=== PATIENT | male | born 1970 | race Caucasian/White ===

== ENCOUNTER 2022-07-26 16:31 | Inpatient (IN) | payer SELFPAY ==
[2022-07-26 16:46] VITALS: BP 155/82; PULSE 92; RESP 18; TEMP 36.7; O2SAT 97; BMI 23.7
[2022-07-26 18:47] VITALS: BP 138/87; PULSE 83; RESP 18; TEMP 36.6; O2SAT 98
--- NOTE | 2022-07-26 19:10 | ED_ITS ---
HPI - Abdominal Pain General Time Seen by Provider: 19:10 Date Seen: 07/26/22 Chief Complaint: Abdominal Pain Stated Complaint: Pain, bloating on L side Time Seen by Provider: 07/26/22 18:53 Source: patient and RN notes reviewed Mode of arrival: ambulatory Limitations: no limitations History of Present Illness HPI narrative: Patient is a 52-year-old male ambulatory into the ED of his own accord for left- sided abdominal pain. He states on Tuesday he started having symptoms, really could not even get out of bed on Tuesday or Tuesday. No nausea or vomiting but has had diminished appetite. Has not noted fevers. No diarrhea or constipation but states he feels like it is painful when he is going to have to defecate. Denies any urinary symptoms. He has not had a colonoscopy yet. He tried to go to work today and the pain was increasing. He looked at himself in the mirror and thought the left side of his abdomen looked more bloated or was sticking out more. He is a nonsmoker, rarely drinks alcohol/just socially. Has had bilateral inguinal hernia repairs but no other abdominal surgery. He is not aware of any family history of anything significant as far as GI issues, no colon cancer. MD elicited complaint: abdominal pain Related Data Home Medications Medication Instructions Recorded Confirmed No Known Home Medications 07/26/22 07/26/22 Allergies Allergy/AdvReac Type Severity Reaction Status Date / Time No Known Drug Allergies Allergy Verified 07/26/22 16:52 Review of Systems Status of ROS Reports: 6 or more systems reviewed and unremarkable except as noted in History and below PFSH PFS Social History Smoking Status: Never smoker How often do you have a drink containing alcohol: monthly or less How many standard drinks containing alcohol do you have on a typical day: 1 or 2 How often do you have six or more drinks on one occasion: Never AUDIT-C Alcohol total score: 1 Non-prescribed substance use: denies use Exam Const: Vital Signs, click to edit/add: Vital Signs - 24 hr 07/26/22 16:46 07/26/22 18:47 Temperature 98.0 F 97.8 F Pulse Rate [Pulse Oximeter] 92 83 Respiratory Rate 18 18 Blood Pressure [Ri ght Upper Arm] 155/82 H 138/87 Pulse Oximetry 97 98 Oxygen Delivery Me thod Room Air Documenting provider has reviewed patient's vital signs: yes Common normals: no apparent distress, average body habitus, oriented x3, no limitations and alert General appearance: cooperative and comfortable Other: Standing up in the room when I go in but is able to sit down and lie back on the bed without any difficulty. HENMT: Common normals: normocephalic, head/scalp atraumatic, hearing grossly normal bilaterally, external nose normal and moist oral mucous membranes Head and scalp: normocephalic and atraumatic Nose: external nose normal Eye: Common normals: PERRL, EOMs intact bilaterally, conjunctivae normal and no scleral icterus Conjunctiva: conjunctiva(e) normal Pupil: PERRL Neck & C-Spine: Common normals: full ROM, no lymphadenopathy, supple and no meningeal signs Resp: Common normals: normal respiratory effort, no retractions, no use of accessory muscles and clear to auscultation bilaterally Auscultation: clear to auscultation bilaterally Cardio: Common normals: regular rate, regular rhythm, S1 normal heart sound, S2 normal heart sound, no gallops, no clicks, no murmurs and no rub Rate: regular rate Rhythm: regular rhythm Heart sounds: S1 normal and S2 normal GI: Common normals: Normal to inspection, nondistended, normoactive bowel sounds present, soft to palpation, no hepatosplenomegaly and no masses Palpa tion: soft and no hepatosplenomegaly Other: Definite left sided mid to lower abdominal tenderness but no true rebound or guarding. Do not feel any underlying mass. There is no inguinal bulging or masses, inguinal region is nontender. Extremity: Common normals: normal to inspection and full ROM Neuro: Common normals: oriented x3 and moves all extremities Sensorium/orientation: alert Meningeal signs: no meningeal signs Gait (neuro): normal gait Course Course Hospital Course: We will place an IV, this patient needs a CT of his abdomen and pelvis with IV contrast to delineate underlying intra-abdominal pathology. This could be diverticulitis, does not sound like it is in the urinary system but such things like kidney stones could be possible. We will start with some IV Toradol for pain management for him. Will get a full complement of labs. Reevaluation(s) Reevaluation #1: Have reviewed with patient with his 2 children whom he requested in his findings of a small-bowel obstruction with a small what seems to be walled off abscess. I have spoken with them that I have reviewed this with the surgeon. We are going to do bowel rest, IV fluids, IV antibiotics. Nursing staff was bringing i n his IV Zosyn when I was talking to them. Did confirm with him that he is still passing gas, believes he had a stool around 1:00 p.m. today. Toradol did help his pain. Time: 21:53 Consultations Consultation #1: Spoke with surgeon on-call Dr. Mireles, she will look at CT and contact me back. We will initiate antibiotics. 9:[address] Mireles did call back, she has reviewed the CT. She would like patient admitted, contact the hospitalist. She does not see the need for immediate surgery. Plan will be for hospitalization with IV antibiotics, bowel rest and IV fluid. Surgeon is okay with clear liquids at this time. Time: 21:25 Vital Signs Vital signs: Initial Vital Signs Temperature 98.0 F 07/26/22 16:46 Temperature Source Temporal Artery Scan 07/26/22 16:46 Pulse Rate 92 07/26/22 16:46 Respiratory Rate 18 07/26/22 16:46 Blood Pressure 155/82 H 07/26/22 16:46 Blood Pressure Mean 106 H 07/26/22 16:46 Blood Pressure Position Sitting 07/26/22 16:46 Pulse Oximetry 97 07/26/22 16:46 Oxygen Delivery Method Room Air 07/26/22 16:46 Vital Signs Temperature 98.0 F 07/26/22 16:46 Pulse Rate 92 07/26/22 16:46 Respiratory Rate 18 07/26/22 16:46 Blood Pressure 155/82 H 07/26/22 16:46 Pulse Oximetry 97 07/26/22 16:46 Oxygen Delivery Method Room Air 07/26/22 16:46 Temperature 97.8 F 07/26/22 18:47 Pulse Rate 83 07/26/22 18:47 Respiratory Rate 18 07/26/22 18:47 Blood Pressure 138/87 07/26/22 18:47 Pulse Oximetry 98 07/26/22 18:47 Oxygen Delivery Method Room Air 07/26/22 16:46 MDM - Abdominal Pain Lab Data Attestation: I reviewed the patient's lab results. Labs: Lab Results 07/26/22 07/26/22 Range/Units 19:28 20:30 WBC 9.79 (4.50-11.00) K/uL RBC 4.32 (4.30-5.90) m/uL Hgb 13.8 (13.5-17.5) gm/dL Hct 40.5 (37.0-53.0) % MCV 94 (80-100) fL MCH 32 (26-34) pg MCHC 34 (32-36) gm/dL RDW Coeff of [place] 13.7 (11.5-15.5) % Plt Count 352 (140-440) K/uL Neut % (Auto) 69.9 (42.0-72.0) % Lymph % (Auto) 19.2 L (20-44) % [place] % (Auto) 8.5 (0.0-11.0) % Eos % (Auto) 1.3 (0.0-7.0) % Baso % (Auto) 0.3 (0.0-3.0) % Neut # (Auto) 6.84 (1.7-7.0) K/uL Lymph # (Auto) 1.90 (0.90-2.90) K/uL [place] # (Auto) 0.80 (0.00-0.90) K/UL Eos # (Auto) 0.13 (0.00-0.50) K/uL Baso # (Auto) 0.03 (0.00-0.30) K/uL Sodium 139 (135-149) mmol/L Potassium 3.8 (3.6-5.1) mmol/L Chloride 103 (96-114) mmol/L Carbon Dioxide 26 (20-32) mmol/L BUN 17 (7-30) mg/dL Creatinine 0.9 (0.5-1.5) mg/dL Estimated Creat Clear 110.97 Estimated GFR 104 ml/min Glucose 114 (60-115) mg/dL Lactate 0.6 (0.5-1.9) mmol/L Calcium 9.2 (8.4-10.6) mg/dL Total Bilirubin 0.4 (0.1-1.5) mg/dL AST 26 (12-35) U/L ALT 24 (4-50) U/L Alkaline Phosphatase 90 (40-150) U/L C-Reactive Protein 17.8 H (0.5-1.0) mg/dL Total Protein 7.8 (6.0-8.3) g/dL Albumin 4.2 (3.3-5.0) g/dL Urine Color Yasmin A (Yellow) Urine Appearance Cloudy A (Clear) Urine pH 5.5 (5.0-8.5) Ur Specific [place] >= 1.030 (1.000-1.030) Urine Protein 2+ A (Negative) Urine Glucose (UA) Negative (Negative) Urine Ketones 1+ A (Negative) Urine Blood Trace-intact A (Negative) Urine Nitrite Negative (Negative) Urine Bilirubin Negative (Negative) Urine Urobilinogen 0.2 (0.2-1.0) Ur Leukocyte Esterase Negative (Negative) Urine RBC 0-2 (0-2) Urine WBC 0-2 (0-5) Ur Squamous Epith Cells Few (None-Few) Urine Bacteria None (None) Imaging Data CT scan - abdomen: Attestation: I have reviewed the pertinent imaging results. Radiologist's impression: Patient: KALI MCLAUGHLIN Facility:?[facility] Patient ID:?[id number] Site Patient ID:?[id number]. Site :?[id number] Study:?CT Abdomen/Pelvis w/ 89cc [id number] 8:48:03 PM Ordering Physician:Lee Hernandez Final Report: INDICATION: Left-sided abdominal pain for 3 days TECHNIQUE: CT abdomen and pelvis acquired with 89 cc Isovue 370 IV contrast. COMPARISON: None FINDINGS: Lower chest: 5 mm pulmonary nodule in the lateral aspect of the left lower lobe on image 12 series 2. Calcified granuloma in the right lower lobe Liver: Unremarkable. Spleen: Unremarkable. Pancreas: Unremarkable. Gallbladder and bile ducts: Unremarkable. Adrenal glands: Unremarkable. Kidneys: Unremarkable. GI tract: Multiple loops of dilated small bowel measure to 3.6 cm in diameter. There is a small bowel feces sign within bowel loops in the left abdomen. This finding is immediately proximal to the transition point in the left mid abdomen where there is focal wall thickening of the small bowel with surrounding fat stranding and a 2.0 x 2.0 x 2.6 cm air and fluid collection, best seen on image 95 series 2 and image 75 series 5. There is a small amount of free fluid. There is colonic diverticulosis without evidence for diverticulitis. There is mild, generalized fat stranding throughout the mesenteric fat. Vascular structures: Unremarkable. Lymph nodes: Unremarkable. Miscellaneous: Status post bilateral inguinal herniorrhaphy. Pelvic Organs: Unremarkable. Bones: Unremarkable for age. IMPRESSION: Small-bowel obstruction. The transition point is in the left mid abdomen at the site of an air and fluid collection measuring 2 cm. This fluid collection could be a small abscess or a contained perforation of the small bowel. Recommend surgical consultation. 5 mm pulmonary nodule in the left lower lobe. Recommend follow-up per Fleischner society guidelines. Colonic diverticulosis without evidence for diverticulitis. Please note that all CT scans at this facility use dose modulation, iterative reconstruction, and/or weight-based dosing when appropriate to reduce radiation dose to as low as reasonably achievable. Dictated by Jil Bergman MD @ 07/26/2022 9:01:21 PM (Electronic Signature) Discharge Plan Discharge Clinical Impression: Partial small bowel obstruction Patient Disposition: Admitted As Inpatient Condition: Unchanged Prescriptions: No Action No Known Home Medications Follow Up/Referrals: Willis Martínez MD [Primary Care Provider] -
--- NOTE | 2022-07-26 19:19 | CRLHL7_ITS ---
For Patients: As a result of the Century Cures Act, medical imaging exams and procedure reports are released immediately into your electronic medical record. You may view this report before your referring provider. If you have questions, please contact your health care provider. INDICATION: Left-sided abdominal pain for 3 days TECHNIQUE: CT abdomen and pelvis acquired with 89 cc Isovue 370 IV contrast. COMPARISON: None FINDINGS: Lower chest: 5 mm pulmonary nodule in the lateral aspect of the left lower lobe on image 12 series 2. Calcified granuloma in the right lower lobe Liver: Unremarkable. Spleen: Unremarkable. Pancreas: Unremarkable. Gallbladder and bile ducts: Unremarkable. Adrenal glands: Unremarkable. Kidneys: Unremarkable. GI tract: Multiple loops of dilated small bowel measure to 3.6 cm in diameter. There is a small bowel feces sign within bowel loops in the left abdomen. This finding is immediately proximal to the transition point in the left mid abdomen where there is focal wall thickening of the small bowel with surrounding fat stranding and a 2.0 x 2.0 x 2.6 cm air and fluid collection, best seen on image 95 series 2 and image 75 series 5. There is a small amount of free fluid. There is colonic diverticulosis without evidence for diverticulitis. There is mild, generalized fat stranding throughout the mesenteric fat. Vascular structures: Unremarkable. Lymph nodes: Unremarkable. Miscellaneous: Status post bilateral inguinal herniorrhaphy. Pelvic Organs: Unremarkable. Bones: Unremarkable for age. IMPRESSION: Small-bowel obstruction. The transition point is in the left mid abdomen at the site of an air and fluid collection measuring 2 cm. This fluid collection could be a small abscess or a contained perforation of the small bowel. Recommend surgical consultation. 5 mm pulmonary nodule in the left lower lobe. Recommend follow-up per Fleischner society guidelines. Colonic diverticulosis without evidence for diverticulitis. Please note that all CT scans at this facility use dose modulation, iterative reconstruction, and/or weight-based dosing when appropriate to reduce radiation dose to as low as reasonably achievable. Dictated by Jil Bergman MD @ 07/26/2022 9:01:21 PM (Electronically Signed)
[2022-07-26 19:36] LABS: Lactate* 0.6 mmol/L (0.5-1.9)
[2022-07-26 19:42] LABS: Basophils Absolute Auto 0.03 K/uL (0.00-0.30); Basophils Percent Auto 0.3 % (0.0-3.0); Eosinophils Absolute Auto 0.13 K/uL (0.00-0.50); Eosinophils Percent Auto 1.3 % (0.0-7.0); Hematocrit 40.5 % (37.0-53.0); Hemoglobin* 13.8 gm/dL (13.5-17.5); Immature Granulocytes Abs Auto 0.08 K/uL (0.00-0.30); Immature Granulocytes Pct Auto 0.8 %; Lymphocytes Percent Auto 19.2 % (20-44); Mean Corpuscular HGB Conc 34 gm/dL (32-36); Mean Corpuscular Hemoglobin 32 pg (26-34); Mean Corpuscular Volume 94 fL (80-100); Monocytes Percent Auto 8.5 % (0.0-11.0); Neutrophils Absolute Auto 6.84 K/uL (1.7-7.0); Neutrophils Percent Auto 69.9 % (42.0-72.0); Platelet Count* 352 K/uL (140-440); RDW Coefficient of Variation % 13.7 % (11.5-15.5); Red Blood Count 4.32 m/uL (4.30-5.90); White Blood Count* 9.79 K/uL (4.50-11.00)
[2022-07-26] MEDS: KETOROLAC 15 MG/ML inj IVP (19:44)
[2022-07-26 19:45] LABS: Slide Review Reflex No
[2022-07-26] MEDS: 0.9 % SODIUM CHLORIDE 500 ML 500 ML IV (19:45)
[2022-07-26 19:50] VITALS: BP 137/99; PULSE 73; RESP 18; O2SAT 98
[2022-07-26 20:00] VITALS: BP 148/86; PULSE 83; RESP 18; O2SAT 96
[2022-07-26 20:01] LABS: Albumin* 4.2 g/dL (3.3-5.0); Chloride* 103 mmol/L (96-114); Potassium* 3.8 mmol/L (3.6-5.1); Sodium* 139 mmol/L (135-149)
[2022-07-26 20:03] LABS: Bilirubin Total* 0.4 mg/dL (0.1-1.5); Creatinine* 0.9 mg/dL (0.5-1.5); Est. Creatinine Clearance* 110.97; Estimated Glomerular Filt Rate 104 ml/min
[2022-07-26 20:04] LABS: Alanine Aminotransferase* 24 U/L (4-50); Alkaline Phosphatase* 90 U/L (40-150); Aspartate Amino Transferase* 26 U/L (12-35); Blood Urea Nitrogen* 17 mg/dL (7-30); Calcium* 9.2 mg/dL (8.4-10.6); Carbon Dioxide* 26 mmol/L (20-32); Glucose* 114 mg/dL (60-115); Total Protein* 7.8 g/dL (6.0-8.3)
[2022-07-26 20:40] LABS: Appearance Urine Cloudy (Clear); Bilirubin Urine Negative (Negative); Blood Urine Trace-intact (Negative); Color Urine Amber (Yellow); Glucose Urine Negative (Negative); Ketones Urine 1+ (Negative); Leukocyte Esterase Urine Negative (Negative); Nitrite Urine Negative (Negative); Protein Urine 2+ (Negative); Specific Gravity Urine >= 1.030 (1.000-1.030); Urobilinogen Urine 0.2 (0.2-1.0); pH Urine 5.5 (5.0-8.5)
[2022-07-26 20:42] LABS: C Reactive Protein* 17.8 mg/dL (0.5-1.0)
[2022-07-26 20:46] LABS: RBC Urine 0-2 (0-2); Squamous Epithelial Cell Urine Few (None-Few); WBC Urine 0-2 (0-5)
[2022-07-26] MEDS: PIPERACILLIN/TAZOBACTAM 3.375 GM in 0.9 % SODIUM CHLORIDE Mini-bag 100 ML IVPB (21:46)
--- NOTE | 2022-07-26 22:12 | ED.NURSE ---
report to LUZ ELENA Oh
[2022-07-26 22:48] VITALS: BP 153/85; PULSE 77; RESP 16; RESP 18; TEMP 36.9; O2SAT 96; BMI 23.2
--- NOTE | 2022-07-26 22:48 | PM.IMHP1 ---
Hospitalist- H&P: HPI History of Present Illness Date Seen: 07/26/22 Chief complaint: Pain, bloating on L side Narrative: Bc Velásquez is a 52 year old male admitted through the emergency department with 3 day history of left lower quadrant abdominal pain and anorexia. He has had 1 nonbloody emesis but persistent nausea. Pain is been moderately severe. Initially was painful to take a deep breath or to get up and walk. He has continued to have a daily bowel movement and passing gas every day. Urination has been okay. He has been able to eat and drink but reports a poor appetite. He has felt fevers and chills subjectively but has not checked his temperature. He has had previous laparoscopic bilateral hernia repair on 05/09/[address] Eller without complications. No other abdominal surgery. Review of Systems Narrative: Patient reports he has generally been doing well other than some chronic musculoskeletal plain problems. No other illness or injury. [facility] Medical History (Updated 07/26/22 @ 23:03 by Bryant Cardenas MD) Chronic pain ?G89.29 - Other chronic pain (ICD-10) Lumbar disc disease ?M51.9 - Unspecified thoracic, thoracolumbar and lumbosacral intervertebral disc disorder (ICD-10) Surgical History (Updated 07/26/22 @ 22:58 by Bryant Cardenas MD) History of inguinal hernia repair ?Z98.890 - Other specified postprocedural states (ICD-10) ?Z87.19 - Personal history of other diseases of the digestive system (ICD-10) History of lumbar discectomy ?Z98.890 - Other specified postprocedural states (ICD-10) Family History (Updated 07/26/22 @ 22:59 by Bryant Cardenas MD) Father Atrial fibrillation Mother Alzheimers disease Social History (Updated 07/26/22 @ 22:59 by Bryant Cardenas MD) Narrative: He lives with his daughter and son in [place]. 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 He does not smoke. He does not drink alcohol. He does use cannabis. Smoking Status: Never smoker How often do you have a drink containing alcohol: monthly or less How many standard drinks containing alcohol do you have on a typical day: 1 or 2 How often do you have six or more drinks on one occasion: Never AUDIT-C Alcohol total score: 1 Non-prescribed substance use: denies use Meds Home Medications and Allergies Home Medications Medication Instructions Recorded Confirmed Type No Known Home Medications 07/26/22 07/26/22 History Home Medication Comments: Occasional use of aspirin or ibuprofen as needed Allergies Allergy/AdvReac Type Severity Reaction Status Date / Time No Known Drug Allergies Allergy Verified 07/26/22 16:52 Exam Narrative: Exam Narrative: He is alert and appears in no distress. He gives his own history. Eyes are normal. Oropharynx is normal. Head is without trauma. Neck is supple without mass or adenopathy. Respirations are clear to auscultation. Cardiovascular: S1, S2, regular rate and rhythm. Abdomen: Bowel sounds are present. Abdomen is soft. He has moderate left lower quadrant tenderness with significant voluntary guarding. External genitalia are normal. Extremities without edema. He has a soft tissue lump below his left patella which she reports developed when he was kneeling on the ground. Some fading bruising over his leg below this. Location appearance are highly suggestive of an infra patella bursa which may have had a hemorrhage. No erythema and no significant tenderness. No joint effusion. Const: Vital Signs, click to edit/add: Vital Signs - 24 hr 07/26/22 16:46 07/26/22 18:47 07/26/22 19:50 Temperature 98.0 F 97.8 F Pulse Rate [Pulse Oximeter] 92 83 73 Respiratory Rate 18 18 18 Blood Pressure [Ri ght Upper Arm] 155/82 H 138/87 137/99 H Pulse Oximetry 97 98 98 Oxygen Delivery Me thod Room Air 07/26/22 20:00 Temperature Pulse Rate [Pulse Oximeter] 83 Respiratory Rate 18 Blood Pressure [Ri ght Upper Arm] 148/86 H Pulse Oximetry 96 Oxygen Delivery Me thod Documenting provider has reviewed patient's vital signs: yes Hospitalist - H&P: Result Labs Labs: Short CBC 07/26/22 Range/Units 19:28 WBC 9.79 (4.50-11.00) K/uL Hgb 13.8 (13.5-17.5) gm/dL Hct 40.5 (37.0-53.0) % Plt Count 352 (140-440) K/uL BMP 07/26/22 19:28 Sodium 139 Potassium 3.8 Chloride 103 Carbon Dioxide 26 BUN 17 Creatinine 0.9 Glucose 114 Calcium 9.2 Liver Function 07/26/22 Range/Units 19:28 Total Bilirubin 0.4 (0.1-1.5) mg/dL AST 26 (12-35) U/L ALT 24 (4-50) U/L Alkaline Phosphatase 90 (40-150) U/L Albumin 4.2 (3.3-5.0) g/dL Urine 07/26/22 Range/Units 20:30 Urine Color Yasmin A (Yellow) Urine Appearance Cloudy A (Clear) Urine pH 5.5 (5.0-8.5) Ur Specific [place] >= 1.030 (1.000-1.030) Urine Protein 2+ A (Negative) Urine Glucose (UA) Negative (Negative) Imaging CT scan - abdomen: Radiologist's impression: ECHNIQUE: CT abdomen and pelvis acquired with 89 cc Isovue 370 IV contrast. COMPARISON: None FINDINGS: Lower chest: 5 mm pulmonary nodule in the lateral aspect of the left lower lobe on image 12 series 2.? Calcified granuloma in the right lower lobe Liver: Unremarkable.? Spleen: Unremarkable.? Pancreas: Unremarkable.? Gallbladder and bile ducts: Unremarkable.? Adrenal glands: Unremarkable.? Kidneys: Unremarkable.? GI tract: Multiple loops of dilated small bowel measure to 3.6 cm in diameter. There is a small bowel feces sign within bowel loops in the left abdomen. This finding is immediately proximal to the transition point in the left mid abdomen where there is focal wall thickening of the small bowel with surrounding fat stranding and a 2.0 x 2.0 x 2.6 cm air and fluid collection, best seen on image 95 series 2 and image 75 series 5. There is a small amount of free fluid. There is colonic diverticulosis without evidence for diverticulitis. There is mild, generalized fat stranding throughout the mesenteric fat. Vascular structures: Unremarkable.? Lymph nodes: Unremarkable.? Miscellaneous: Status post bilateral inguinal herniorrhaphy. Pelvic Organs: Unremarkable.? Bones: Unremarkable for age.? IMPRESSION: Small-bowel obstruction. The transition point is in the left mid abdomen at the site of an air and fluid collection measuring 2 cm. This fluid collection could be a small abscess or a contained perforation of the small bowel. Recommend surgical consultation. 5 mm pulmonary nodule in the left lower lobe. Recommend follow-up per Fleischner society guidelines. Colonic diverticulosis without evidence for diverticulitis. Assessment and Plan Assessment and plan (1) Partial small bowel obstruction: Status: Acute (2) Abdominal abscess: Status: Acute Plan Patient appears to have a small abdominal abscess and associated partial small-bowel obstruction. Symptoms have been clearly present for 3 days. He has been able to eat and drink and has been having bowel movements during this time. The etiology of the abscess is uncertain. Likely associated with the small bowel obstruction. Will initiate IV antibiotics and consult General surgery. Total time spent today is 70 minutes, 45 minutes in coordination care and discussing with patient ongoing evaluation management of intra-abdominal problems
[2022-07-26] MEDS: LACTATED RINGERS 1000 ML 1,000 ML 125 ML IV (23:23)
[2022-07-26 23:25] VITALS: PULSE 66; RESP 18
[2022-07-26] MEDS: MORPHINE 4 MG/ML INJ IVP (23:29)
[2022-07-27 02:20] VITALS: BP 122/78; PULSE 83; RESP 16; TEMP 36.7; O2SAT 98
[2022-07-27] MEDS: LACTATED RINGERS 1000 ML 1,000 ML 125 ML IV (06:15)
--- NOTE | 2022-07-27 06:25 | PC.NURSE ---
Pt alert and oriented x3. Afebrile. Pt reports 5/10 pain in abdomen and back, pain managed with PRN medications. Pt denies chest pain, SOB, and N/V. Pt is up Ind in room, tolerating a clear liquid diet, voiding, no bowel movement. Pt slept intermittently throughout?night.?Pt states I feel much better than the night before and my stomach doesn't feel as hard as it did.
--- NOTE | 2022-07-27 07:28 | P.GSCN_ITS ---
History of Present Illness Consult details Date Seen: 07/27/22 Consult date: 07/27/22 Narrative: 52-year-old male presented to emergency room last night with abdominal pain that started several days ago. Patient states that on Tuesday he started to feel severe abdominal pain in the left lower quadrant and lower abdomen on the right. The pain was so severe that patient ?stayed in bed? the entire weekend. He felt hot flashes but did not take his temperature. He was passing gas and having bowel movements daily. He had 1 episode of nausea but overall was able to tolerate some food and was drinking to stay hydrated. Yesterday he noticed ?a bulge? in the left lower flank and that concerned him. He presented to the emergency room for evaluation. Patient did not have anything similar in the past. He has never had a colonoscopy. Patient's pain was actually improving yesterday. Upon his workup he was found to have elevated CRP of 17. His WBC was normal at 9. An abdominal CT was obtained that showed a small 2 x 2.6 cm abscess adjacent to the dilated small bowel. There were dilated loops of small intestine with a transition point near the abscess. There was no elias leaf free air. Review of Systems Narrative: General: no fevers HENT: no problems swallowing CV: no shortness of breath but patient was having pain with taking deep breaths or the weekend Resp: no cough GI: See above Skin: no new rashes Musculoskeletal: Patient has chronic lumbar pain Neuro: no muscle weakness Psyche: no depression, no anxiety PFSH PFSH Medical History Chronic pain ?G89.29 - Other chronic pain (ICD-10) Lumbar disc disease ?M51.9 - Unspecified thoracic, thoracolumbar and lumbosacral intervertebral disc disorder (ICD-10) Surgical History (Updated 07/26/22 @ 22:58 by Bryant Cardenas MD) History of inguinal hernia repair ?Z98.890 - Other specified postprocedural states (ICD-10) ?Z87.19 - Personal history of other diseases of the digestive system (ICD-10) History of lumbar discectomy ?Z98.890 - Other specified postprocedural states (ICD-10) Family History (Updated 07/26/22 @ 22:59 by Bryant Cardenas MD) Father Atrial fibrillation Mother Alzheimers disease Social History (Updated 07/26/22 @ 22:59 by Bryant Cardenas MD) Narrative: He lives with his daughter and son in [place]. He works as a director of property management. He does not smoke. He does not drink alcohol. He does use cannabis. Highest level of school completed/degree received: high school graduate Smoking Status: Never smoker Do you use any of these nicotine containing products: None How often do you have a drink containing alcohol: monthly or less How many standard drinks containing alcohol do you have on a typical day: 1 or 2 How often do you have six or more drinks on one occasion: Never AUDIT-C Alcohol total score: 1 Non-prescribed substance use: denies use Caffeine: No service: No Meds Home Medications and Allergies Home Medications Medication Instructions Recorded Confirmed Type No Known Home Medications 07/26/22 07/26/22 History Allergies Allergy/AdvReac Type Severity Reaction Status Date / Time No Known Drug Allergies Allergy Verified 07/26/22 16:52 Exam Narrative: Exam Narrative: General appearance: Alert, cooperative, and in no distress Pulmonary: Chest symmetric, lungs clear bilaterally Cardiovascular Heart: Regular rate and rhythm, S1, S2, no murmurs/rubs/gallops Gastrointestinal Abdominal: soft, minimally distended, minimally tender to palpation in left lower quadrant with no peritoneal signs. There are no bulges noted in the left flank. Skin: Normal skin color, texture, and turgor. No rashes or lesions. Psychiatric: Alert, cooperative, normal affect. Const: Vital Signs, click to edit/add: Vital Signs - 24 hr 07/26/22 16:46 07/26/22 18:47 07/26/22 19:50 Temperature 98.0 F 97.8 F Pulse Rate [Pulse Oximeter] 92 83 73 Pulse Rate [Right Pulse Oximeter] Respiratory Rate 18 18 18 Blood Pressure [Le ft Arm] Blood Pressure [Ri ght Upper Arm] 155/82 H 138/87 137/99 H Pulse Oximetry 97 98 98 Oxygen Delivery Me thod Room Air 07/26/22 20:00 07/26/22 22:48 07/26/22 22:48 Temperature 98.4 F Pulse Rate [Pulse Oximeter] 83 Pulse Rate [Right Pulse Oximeter] 77 Respiratory Rate 18 16 18 Blood Pressure [Le ft Arm] 153/85 H Blood Pressure [Ri ght Upper Arm] 148/86 H Pulse Oximetry 96 96 96 Oxygen Delivery Me thod Room Air Room Air 07/26/22 23:25 07/27/22 02:20 Temperature 98.0 F Pulse Rate [Pulse Oximeter] Pulse Rate [Right Pulse Oximeter] 66 83 Respiratory Rate 18 16 Blood Pressure [Le ft Arm] 122/78 Blood Pressure [Ri ght Upper Arm] Pulse Oximetry 98 Oxygen Delivery Me thod Room Air Results Labs Labs: Abnormal lab results 07/26/22 07/26/22 Range/Units 19:28 20:30 Lymph % (Auto) 19.2 L (20-44) % C-Reactive Protein 17.8 H (0.5-1.0) mg/dL Urine Color Yasmin A (Yellow) Urine Appearance Cloudy A (Clear) Urine Protein 2+ A (Negative) Urine Ketones 1+ A (Negative) Urine Blood Trace-intact A (Negative) Diabetes panel 07/26/22 Range/Units 19:28 Sodium 139 (135-149) mmol/L Potassium 3.8 (3.6-5.1) mmol/L Chloride 103 (96-114) mmol/L Carbon Dioxide 26 (20-32) mmol/L BUN 17 (7-30) mg/dL Creatinine 0.9 (0.5-1.5) mg/dL Glucose 114 (60-115) mg/dL Calcium 9.2 (8.4-10.6) mg/dL AST 26 (12-35) U/L ALT 24 (4-50) U/L Alkaline Phosphatase 90 (40-150) U/L Total Protein 7.8 (6.0-8.3) g/dL Albumin 4.2 (3.3-5.0) g/dL Calcium panel 07/26/22 Range/Units 19:28 Calcium 9.2 (8.4-10.6) mg/dL Albumin 4.2 (3.3-5.0) g/dL Pituitary panel 07/26/22 Range/Units 19:28 Sodium 139 (135-149) mmol/L Potassium 3.8 (3.6-5.1) mmol/L Chloride 103 (96-114) mmol/L Carbon Dioxide 26 (20-32) mmol/L BUN 17 (7-30) mg/dL Creatinine 0.9 (0.5-1.5) mg/dL Glucose 114 (60-115) mg/dL Calcium 9.2 (8.4-10.6) mg/dL Adrenal panel 07/26/22 Range/Units 19:28 Sodium 139 (135-149) mmol/L Potassium 3.8 (3.6-5.1) mmol/L Chloride 103 (96-114) mmol/L Carbon Dioxide 26 (20-32) mmol/L BUN 17 (7-30) mg/dL Creatinine 0.9 (0.5-1.5) mg/dL Glucose 114 (60-115) mg/dL Calcium 9.2 (8.4-10.6) mg/dL Total Bilirubin 0.4 (0.1-1.5) mg/dL AST 26 (12-35) U/L ALT 24 (4-50) U/L Alkaline Phosphatase 90 (40-150) U/L Total Protein 7.8 (6.0-8.3) g/dL Albumin 4.2 (3.3-5.0) g/dL All other labs normal. Assessment and Plan Assessment and plan (1) Abdominal abscess: Status: Acute Plan 52-year-old male presents with partial small bowel obstruction and intra- abdominal abscess of unknown etiology. I discussed with the patient his laboratory and CT findings. Patient clearly has a small abscess adjacent to the small intestine. I think this most likely happened due to small bowel perforation. This subsequently walled itself off. The etiology of this is unknown but could be due to a small bowel diverticulum. Patient is currently improving with conservative therapy. I would recommend continuing IV antibiotics for total of 10 days. We can advance his diet as tolerated since he has been passing gas and having bowel movements throughout his severe illness and currently is clinically improving. I will see this patient in clinic in 1 week for follow-up. Will need to get upper GI with small-bowel follow-through after he is clinically improved. Patient also is due for colonoscopy and will delayed for the next few weeks.
[2022-07-27 08:15] VITALS: BP 129/74; PULSE 51; RESP 18; TEMP 36.2; O2SAT 95
[2022-07-27] MEDS: ACETAMINOPHEN 325 MG TABLET 650 MG PO (09:15)
[2022-07-27 11:00] VITALS: BP 125/74; PULSE 76; RESP 16; TEMP 36.8; O2SAT 98
--- NOTE | 2022-07-27 11:03 | P.DS_ITS ---
DS: Providers Provider Time Seen by Provider: 09:08 Date Seen: 07/27/22 Date of admission: 07/26/22 22:44 Primary care physician: Willis Martínez MD Admitting Clinician: Bryant Cardenas MD Attending Physician on discharge: Renetta Candelario MD Date of Discharge: 07/27/22 DS: Diagnosis Discharge Diagnosis (1) Abdominal abscess: Status: Acute Problem details: Appreciate gen surgery's recommendations. ADAT to low residue. F/u with Dr. Mireles in 1 week. PICC and 10 days of ertapenem as outpatient. (2) Partial small bowel obstruction: Status: Resolved (3) Chronic pain: Status: Chronic Problem details: History of chronic pain, chronic opioid use, chronic cannabis use (4) Lung nodule seen on imaging study: Status: Acute Problem details: 5 mm pulmonary nodule in the left lower lobe. Recommend follow-up per Fleischner society guidelines. - I spoke with patient about this and have asked him to f/u with PCP for follow up imaging. DS: Summary Hospital Course Hospital Course: Note to PCP: will need f/u of pulmonary nodule seen on CT. 52-year-old male who had several days of left lower quadrant pain. CT head showed a small-bowel obstruction with small fluid collection. General surgery saw the patient and thought there was likely an abscess. Patient was able to tolerate eating and drinking and had flatus. He had been on Zosyn since admission and this was transitioned over to ertapenem today. He will get a PICC line tomorrow with the next dose of ertapenem and is discharged home today in stable condition. Bowel obstruction has resolved. He and I discussed the pulmonary nodule that was seen on CT and I have recommended that he follow-up with his primary care provider to order further imaging. Time Spent with Patient Time attestation: Total time spent providing and/or coordinating discharge services: Exam Narrative: Exam Narrative: General: No acute distress. Awake, alert, oriented x3. No pallor. No jaundice. Oropharynx: Clear. Mucous membranes moist. Cardiovascular: Regular rate and rhythm. No murmurs, gallops, or rubs. Respiratory: Clear to auscultation bilaterally. No wheezes or crackles. Abdomen: Bowel sounds present. Soft, mildly distended, mildly tender in the left lower quadrant with no rebound tenderness or guarding.. Extremities: No pedal edema. Const: Vital Signs, click to edit/add: Vital Signs - 24 hr 07/26/22 16:46 07/26/22 18:47 07/26/22 19:50 Temperature 98.0 F 97.8 F Pulse Rate [Bilate ral Radial] Pulse Rate [Left A pical] Pulse Rate [Pulse Oximeter] 92 83 73 Pulse Rate [Right Pulse Oximeter] Respiratory Rate 18 18 18 Blood Pressure [Le ft Arm] Blood Pressure [Ri ght Upper Arm] 155/82 H 138/87 137/99 H Pulse Oximetry 97 98 98 Oxygen Delivery Ca thod Room Air 07/26/22 20:00 07/26/22 22:48 07/26/22 22:48 Temperature 98.4 F Pulse Rate [Bilate ral Radial] Pulse Rate [Left A pical] Pulse Rate [Pulse Oximeter] 83 Pulse Rate [Right Pulse Oximeter] 77 Respiratory Rate 18 16 18 Blood Pressure [Le ft Arm] 153/85 H Blood Pressure [Ri ght Upper Arm] 148/86 H Pulse Oximetry 96 96 96 Oxygen Delivery Ca thod Room Air Room Air 07/26/22 23:25 07/27/22 02:20 07/27/22 08:15 Temperature 98.0 F 97.2 F L Pulse Rate [Bilate ral Radial] 51 L Pulse Rate [Left A pical] 51 L Pulse Rate [Pulse Oximeter] Pulse Rate [Right Pulse Oximeter] 66 83 51 L Respiratory Rate 18 16 18 Blood Pressure [Le ft Arm] 122/78 129/74 Blood Pressure [Ri ght Upper Arm] Pulse Oximetry 98 95 Oxygen Delivery Ca thod Room Air Room Air DS: Data Data Completed and Pending Completed studies during hospitalization: Ordering Physician: Mary Ackerman M.D. Date of Service: 07/26/22 Procedure(s): CT abdomen pelvis w con Accession Number(s): [id number] cc: Willis Martínez M.D.; Mary Ackerman M.D.~ For Patients:? As a result of the Century Cures Act, medical imaging exams and procedure reports are released immediately into your electronic medical record.? You may view this report before your referring provider.? If you have questions, please contact your health care provider. INDICATION: Left-sided abdominal pain for 3 days TECHNIQUE: CT abdomen and pelvis acquired with 89 cc Isovue 370 IV contrast. COMPARISON: None FINDINGS: Lower chest: 5 mm pulmonary nodule in the lateral aspect of the left lower lobe on image 12 series 2.? Calcified granuloma in the right lower lobe Liver: Unremarkable.? Spleen: Unremarkable.? Pancreas: Unremarkable.? Gallbladder and bile ducts: Unremarkable.? Adrenal glands: Unremarkable.? Kidneys: Unremarkable.? GI tract: Multiple loops of dilated small bowel measure to 3.6 cm in diameter. There is a small bowel feces sign within bowel loops in the left abdomen. This finding is immediately proximal to the transition point in the left mid abdomen where there is focal wall thickening of the small bowel with surrounding fat stranding and a 2.0 x 2.0 x 2.6 cm air and fluid collection, best seen on image 95 series 2 and image 75 series 5. There is a small amount of free fluid. There is colonic diverticulosis without evidence for diverticulitis. There is mild, generalized fat stranding throughout the mesenteric fat. Vascular structures: Unremarkable.? Lymph nodes: Unremarkable.? Miscellaneous: Status post bilateral inguinal herniorrhaphy. Pelvic Organs: Unremarkable.? Bones: Unremarkable for age.? IMPRESSION: Small-bowel obstruction. The transition point is in the left mid abdomen at the site of an air and fluid collection measuring 2 cm. This fluid collection could be a small abscess or a contained perforation of the small bowel. Recommend surgical consultation. 5 mm pulmonary nodule in the left lower lobe. Recommend follow-up per Fleischner society guidelines. Colonic diverticulosis without evidence for diverticulitis. Please note that all CT scans at this facility use dose modulation, iterative reconstruction, and/or weight-based dosing when appropriate to reduce radiation dose to as low as reasonably achievable. Dictated by Jil Bergman MD @ 07/26/2022 9:01:21 PM (Electronically Signed) Labs on day of discharge: Labs from last 24 hours 07/26/22 07/26/22 20:30 19:28 WBC 9.79 RBC 4.32 Hgb 13.8 Hct 40.5 MCV 94 MCH 32 MCHC 34 RDW Coeff of [place] 13.7 Plt Count 352 Neut % (Auto) 69.9 Lymph % (Auto) 19.2 L [place] % (Auto) 8.5 Eos % (Auto) 1.3 Baso % (Auto) 0.3 Neut # (Auto) 6.84 Lymph # (Auto) 1.90 [place] # (Auto) 0.80 Eos # (Auto) 0.13 Baso # (Auto) 0.03 Sodium 139 Potassium 3.8 Chloride 103 Carbon Dioxide 26 BUN 17 Creatinine 0.9 Estimated Creat Clear 110.97 Estimated GFR 104 Glucose 114 Lactate 0.6 Calcium 9.2 Total Bilirubin 0.4 AST 26 ALT 24 Alkaline Phosphatase 90 C-Reactive Protein 17.8 H Total Protein 7.8 Albumin 4.2 Urine Color Yasmin A Urine Appearance Cloudy A Urine pH 5.5 Ur Specific [place] >= 1.030 Urine Protein 2+ A Urine Glucose (UA) Negative Urine Ketones 1+ A Urine Blood Trace-intact A Urine Nitrite Negative Urine Bilirubin Negative Urine Urobilinogen 0.2 Ur Leukocyte Esterase Negative Urine RBC 0-2 Urine WBC 0-2 Ur Squamous Epith Cells Few Urine Bacteria None Discharge Plan Discharge Disposition: Home, Self-Care Date of Admission: 07/26/22 22:44 Attending Provider on Discharge: Renetta Candelario Primary Care Provider: Willis Martínez Condition: Unchanged Anticipated Discharge Date/Time: 07/27/22 14:00 Discharge Medications: No Action No Known Home Medications Discharge Orders: Discharge Order (Routine); Ordered 07/27/22 Ordered By: Renetta Candelario Patient Education: Pulmonary Nodules (DC) Activity Level: No Restrictions Discharge Diet: Low Fiber Follow Up Appointments: Willis Martínez MD [Primary Care Provider] - (1-2 weeks) Giovanni Mireles MD [Staff Physician] - (one week) Forms: [employer] Info Instructions
[2022-07-27] MEDS: IBUPROFEN 600 MG TABLET PO (13:13)
[2022-07-27] MEDS: ERTAPENEM 1 GM in 0.9 % SODIUM CHLORIDE Mini-bag 100 ML IVPB (13:13)
[2022-07-27 13:48] VITALS: RESP 18; TEMP 36.2
--- NOTE | 2022-07-27 15:04 | PC.NURSE ---
Tory by Dr. Candelario. Pt UAL, rating LLQ pain 2-3 out of 10, chronic LBP 5 out of 10. Pt treated with tylenol prn and 600 mg of ibuprofen. Adv from CL to low fiber diet w/o increased pain. IV ertapenam infused. Pt verbalized understanding of d/c diagnosis, sx to report urgently. IV D/C'ed. F/up appts made and pt will come back for PICC insertion on med/surg floor tomorrow at 1 pm and a dose of outpatient Ertepenam once placement is comfirmed. Pt is expected to receive 10 days of outpatient ATB in [facility] during the week and med/surg on the weekends. Ambulatory d/c to own home with personal belongings @ [phone] with carol Morrison as transportation.
== END 2022-07-27 14:45 | disposition home or self-care (01) | DRG 388 ==
LOC: ED 21:58 → MEDSURG 22:21
PROVIDERS: Admitting Provider Family Medicine; Emergency Provider Family Medicine; PCP Surgery; Visit Provider Family Medicine
DX: K56.600 Partial intestinal obstruction, unspecified as to cause (principal); K65.1 Peritoneal abscess; K57.30 Diverticulosis of large intestine without perforation or abscess without bleeding; R91.1 Solitary pulmonary nodule; G89.29 Other chronic pain; M51.36 Other intervertebral disc degeneration, lumbar region
CPT/HCPCS: 36415; 74177; 80053; 81001; 83605; 85025; 86140; 99284; 99285; A9270; J1335; J1885; J2270; J2543; J7120; Q9967

== ENCOUNTER 2022-07-28 13:46 | Outpatient (CLI) | payer SELFPAY ==
--- NOTE | 2022-07-28 13:00 | CRLHL7_ITS ---
For Patients: As a result of the Cures Act, medical imaging exams and procedure reports are released immediately into your electronic medical record. You may view this report before your referring provider. If you have questions, please contact your health care provider. Indication: RIGHT PICC LINE FOR SET OFF [employer]ESS [employer]PERATOR [employer] Technique: Sonographic images of the right basilic vein and right internal jugular vein submitted. IMPRESSION: Ultrasound guidance for PICC line placement. Dictated by Steve Valle MD @ 07/29/2022 10:07:53 AM (Electronically Signed)
== END 2022-07-28 13:47 | disposition home or self-care (01) ==
LOC: US 13:46
PROVIDERS: PCP Surgery; Visit Provider Family Medicine
DX: K65.1 Peritoneal abscess (principal)
CPT/HCPCS: 36573; 96365; 99211; C1751; J1335; J7050

== ENCOUNTER 2022-08-03 14:00 | Outpatient (RCR) | payer OTHER, SELFPAY ==
[2022-07-29] MEDS: ERTAPENEM 1 GM in 0.9 % SODIUM CHLORIDE Mini-bag 100 ML IVPB (14:08)
[2022-07-29 14:15] VITALS: BP 143/87; PULSE 64; RESP 18; TEMP 37.3; O2SAT 98
[2022-07-30 13:47] VITALS: BP 116/77; PULSE 84; RESP 16; TEMP 36.5; O2SAT 96
[2022-07-30] MEDS: ERTAPENEM 1 GM in 0.9 % SODIUM CHLORIDE Mini-bag 100 ML IVPB (14:08)
[2022-07-31] MEDS: ERTAPENEM 1 GM in 0.9 % SODIUM CHLORIDE Mini-bag 100 ML IVPB (13:59)
[2022-07-31 14:09] VITALS: BP 127/85; PULSE 73; RESP 16; TEMP 36.4; O2SAT 96
--- NOTE | 2022-07-31 14:12 | PC.NURSE ---
Pt arrived for outpt infusion at 1400 independently. VS WNL and LS COA. Denies any allergies. PICC flushed without difficulty and Ertepenem infusion started.
[2022-07-31 14:45] VITALS: BP 110/92; PULSE 74; RESP 16; TEMP 36.7; O2SAT 97
--- NOTE | 2022-07-31 14:51 | PC.NURSE ---
Infusion tolerated well. VS WNL. Pt independently exited unit accompanied by his daughter. Plans to return tomorrow for another infusion.
[2022-08-01] MEDS: ERTAPENEM 1 GM in 0.9 % SODIUM CHLORIDE Mini-bag 100 ML IVPB (13:50)
[2022-08-01 13:59] VITALS: BP 123/78; PULSE 86; RESP 18; TEMP 36.4; O2SAT 97
[2022-08-02 13:44] VITALS: BP 130/87; PULSE 84; RESP 16; TEMP 36.1; O2SAT 97
[2022-08-02] MEDS: ERTAPENEM 1 GM in 0.9 % SODIUM CHLORIDE Mini-bag 100 ML IVPB (14:17)
[2022-08-02 15:15] LABS: White Blood Count* 10.69 K/uL (4.50-11.00)
--- NOTE | 2022-08-02 15:21 | ONC.NURNOTE ---
VSS. Pt saw Dr. Mireles prior to coming to infusion. Labs and CT were ordered. Pt forgot to go to lab, orders faxed to [facility] and blood drawn. Will fax results to [facility] when resulted.
--- NOTE | 2022-08-03 14:46 | PC.NURSE ---
Called pt as he did not arrive for his scheduled abx appt. Pt states that he is having surgery tomorrow morning (was initially scheduled for today but then got moved to tomorrow morning). He was under the impression that the abx weren't working and that he didn't need to come in today. RN reviewed case with Dr. Herrmann (via Libra Diop RN) and confirmed surgery plans for tomorrow and directed RN to cancel [facility] abx appts for this week that are currently scheduled.
== END 2023-01-25 23:59 | disposition home or self-care (01) ==
LOC: CCIC 14:00
PROVIDERS: Surgery; PCP Surgery; Visit Provider Family Medicine
DX: K65.1 Peritoneal abscess (principal)
CPT/HCPCS: 36415; 36592; 85048; 96365; 99211; J1335

== ENCOUNTER 2022-08-04 06:14 | Inpatient (IN) | payer OTHER, SELFPAY ==
[2022-08-04] VITALS (21 sets, daily range): BP systolic 120–168; BP diastolic 69–85; PULSE 73–95; RESP 14–20; TEMP 36.5–37.2; O2SAT 91–99; BMI 22.4
[2022-08-04] MEDS: LACTATED RINGERS 1000 ML 1,000 ML 100 ML IV ×3 (06:40→20:28)
[2022-08-04] MEDS: SODIUM CHLORIDE 0.9 % (FLUSH) 10 ML SYRINGE IVF ×3 (06:40→19:45)
[2022-08-04] MEDS: CEFAZOLIN 2 GM INJ IVP (07:50)
--- NOTE | 2022-08-04 08:16 | W.PM.NB ---
Nerve Block Nerve Block Time Seen by Provider: 07:43 Date Seen: 08/04/22 Type of block requested by surgeon for post-operative analgesia: TAP Side: bilateral Time out performed: Yes Verification of patient name: Yes Verification of date of : Yes Site marking: site marked Name of person performing procedure: Hector Continuous monitoring Was continuous monitoring of O2 sat, B/P, rn cardiac cath, recorded every 15 minutes?: Yes Procedure Checklist: sterile prep, needles and gloves Ultrasound guided. Images saved: Yes Medications given in 5ml increments after negative aspiration: Marcaine %: 0.25 mL: 30 Needle gauge: 20 and Exparel mL: 10 Patient tolerated procedure well: Yes Additional comments: Needle noted adjacent to nerve Block Charges Block Charge (with Pro Fee): TAP Bilateral Use of Ultrasound Machine for Block: Yes- US Guidance/pain block
--- NOTE | 2022-08-04 08:17 | W.ANESCHARGE ---
Anesthesia Charges Start Date/Time Anesthesia Start Date: 08/04/22 Anesthesia Start Time: 07:35 Stop Date/Time Anesthesia Stop Date: 08/04/22 Anesthesia Stop Time: 10:07
--- NOTE | 2022-08-04 10:08 | W.ANESCHARGE ---
Anesthesia Charges Start Date/Time Anesthesia Start Date: 08/04/22 Anesthesia Start Time: 07:35 Stop Date/Time Anesthesia Stop Date: 08/04/22 Anesthesia Stop Time: 10:07
[2022-08-04] MEDS: fentaNYL 100 MCG/2 ML inj 50 MCG IVP ×3 (10:12→10:37)
--- NOTE | 2022-08-04 10:20 | P.GSOP_ITS ---
Operative Note Date of procedure: 08/04/22 Pre-op diagnosis: 1. Partial small bowel obstruction not resolving with conservative management. 2. History of intra-abdominal small bowel abscess. Post-op diagnosis: 1. Inflamed small bowel segment in the distal jejunum/proximal ileum. Type of Procedure: 1. Exploratory laparoscopy. 2. Exploratory laparotomy. 3. Small bowel resection. Indications: 52-year-old male presented to emergency room initially on July with abdominal pain of 3 days. Patient's pain started several days prior to presentation and was described as severe. The pain was then improved somewhat but patient was concerned with the persistence of pain and presented to emergency room. At that time the emergency room he was found to have an elevated CRP with normal WBC. An abdominal CT was obtained that showed a 2 x 2.6 cm abscess adjacent to dilated small bowel. The transition point was thought to be near the abscess. Since patient was passing gas and did not have any nausea or vomiting, he was treated conservatively with IV antibiotics. Patient was then discharged on IV antibiotics as outpatient. Patient continued IV antibiotics and was seen in clinic 2 days ago. Patient stated that last Tuesday he drank a milkshake and shortly after, had a large episode of vomiting. Overall he was eating very bland diet and was afraid to advance to regular diet given prior to the milk shake. He continued to pass gas and have bowel movements but complained of bloating and feeling full. WBC was repeated and continued to be normal. An abdominal CT was obtained again and showed resolution of intra-abdominal abscess. However, there was a segment of small intestine that was thickened. The small bowel proximal to that segment was dilated and small bowel distal to that segment was decompressed. Since patient was not improving as expected after 7 days of IV antibiotics, exploratory laparoscopy and laparotomy was recommended. The procedure was discussed in detail. The risks associated procedure including infection, bleeding, injury to intra-abdominal organs, the need for small-bowel resection, anastomotic leak, and future abdominal wall hernia repair and adhesions were all discussed with the patient, and he agreed to proceed. Procedure Description: After discussing the risks and benefits of the procedure, the patient signed informed consent.? The operative site was marked and the patient was brought to the operating room and placed on the operating table in supine position.? Care was taken to pad the patient's pressure points.?? The patient was then intubated by anesthesia.? TAP blocks were administered by Anesthesia.? The operative site was then prepped and draped in the usual sterile fashion.? A time-out was then performed. A 5-mm laparoscopy port was placed in the left upper quadrant guided by a 5-mm laparoscope placed into a translucent trochar. Passage through the layers of the abdominal wall was visualized with the laparoscope. A pneumoperitoneum was established. A 30-degree 5-mm laparoscope was advanced into the abdomen. The abdomen was briefly surveyed, and there was no evidence of diffuse peritonitis. Two additional 5 mm ports were placed in the right and left lower quadrant under direct visualization. With soft jaws laparoscopic graspers I then attempted to run the small bowel. The small bowel was not dilated but the distal ileum was friable when grasped. I started from the terminal ileum and continued towards the jejunum. However somewhere mid small intestine the intestine was diving deep and was adherent to the mesentery. I was not able to grasp it with my laparoscopic graspers and pull it up to examine, and decision was made to convert to exploratory laparotomy. Laparoscopic ports were then removed and a midline laparotomy incision was made around the umbilicus. This was done with a scalpel. Dermis was divided with cautery. The anterior fascia was grasped with Bethany clamps and incised with cautery. Abdomen was entered and the fascial incision was lengthened with cautery. A small Serge retractor was initially placed into the abdomen and small bowel was eviscerated. I was only able to eviscerate the proximal jejunum and examined small intestine appeared healthy and not dilated. In the distal je junum/proximal terminal ileum there was a segment of small bowel adherent to the small bowel mesentery with dense inflammatory adhesions. I attempted to mobilized this bluntly but was not successful. The Serge retractor was then removed and surgical incision was lengthened. A large-sized Serge retractor was then placed into the surgical incision. The exposure of the adherent small bowel segment was obtained. The small bowel was dissected from adherent mesentery bluntly and with cautery. The mesentery near this adherent small bowel was friable. Once the small bowel segment was free, I was able to examine it. It was thickened and inflamed but there was no definite evidence of a small bowel diverticulum. Only minimal amount of purulent fluid was seen during dissection of this segment. The rest of the small intestine was examined until the cecum was reached, and the intestine looked healthy. The inflamed segment of small intestine was then resected. The small bowel mesentery adjacent to the inflamed small bowel segment was clamped, divided, and controlled with Vicryl ties. The proximal distal small bowel was divided with blue load of NEREYDA stapler. Bleeding was seen from the small bowel staple line and that was oversewn with [id number]-[id number] 3-0 silk pop-off sutures. The proximal and distal ends of the small bowel were then lined up with 3-0 silk pop-off suture near the staple line. The small-bowel enterotomy was then made with cautery in the proximal and distal limb. The stapler handles were advanced into the small intestine. A wmgc-bf-diod functional end-to-end small bowel anastomosis was then created with 100 mm blue load of NEREYDA stapler. The staple line was examined from the inside, and no bleeding was noted inside the small bowel. The common enterotomy was then closed with interrupted 3-0 silk sutures using Lambert stitches. A crotch stitch was placed with interrupted 3-0 silk suture. The small bowel mesenteric defect was closed with a running 3-0 Vicryl stitch. The small bowel anastomosis was then placed into the abdomen. The surgical gloves were changed and all dirty instruments were removed. The abdomen was then irrigated with warm normal saline. The abscess cavity was then examined again and no bleeding was seen. Omentum was placed over the small intestine. The fascia of the midline laparotomy incision was then closed with 2 running 0-0 Maxon sutures. Hemostasis was achieved with cautery. The dermis was reapproximated with interrupted 3-0 Vicryl sutures. The skin was then closed with a running 4-0 Monocryl stitch. Sterile dressings were placed over the incision. All counts were correct at the end of the case. The patient tolerated this procedure well and was transferred to PACU in stable condition. ? Findings: A short segment approximately 4-5 inches of distal ileum/proximal jejunum that was inflamed and adherent to small bowel mesentery. The segment was thickened and small amount of purulent fluid was seen during the dissection. However there was no definite diverticulum noted. Anesthesia: GETA Surgeon: Giovanni Mireles MD Estimated blood loss (mL): 40 Additional Specimen Information: 1. Small-bowel segment. Condition: stable Disposition: PACU
[2022-08-04] MEDS: HYDROmorphone 0.5 mg/0.5 ml inj IVP ×6 (10:26→18:24)
[2022-08-04] MEDS: MEPERIDINE 25 MG/ML INJ 12.5 MG IVP (10:30)
[2022-08-04] MEDS: ACETAMINOPHEN 1,000 MG/100 ML INJ 1000 MG IVPB (10:41)
--- NOTE | 2022-08-04 16:54 | CRLHL7_ITS ---
For Patients: As a result of the Century Cures Act, medical imaging exams and procedure reports are released immediately into your electronic medical record. You may view this report before your referring provider. If you have questions, please contact your health care provider. HISTORY: NG tube placement COMPARISON: Portable chest from 07/28/2022 FINDINGS: A portable erect AP view of the chest was obtained at 1709 hours. During the interval, a nasogastric tube has been placed with its tip at the area of the GE junction. The tube should be advanced another 20-[address] the tip and the proximal port below the GE junction. Again seen is a right PICC line in satisfactory position with its tip in the superior vena cava at the cavoatrial junction. There is new mild free intra-abdominal air, with air seen under both hemidiaphragms. This could be from recent surgery. There is no sign of distension of the stomach or visualized superior small-bowel. The lungs remain clear. The heart remains normal in size. The mediastinum is normal in appearance. The osseous structures are normal in appearance for the patient`s age. IMPRESSION: Nasogastric tube tip in the area of the GE junction, recommend advancing it 20-30 centimeters with follow-up radiograph. Small amount of free air in the abdomen, possibly from recent surgery. Otherwise no active disease seen in the chest. Dictated by Matthew Oviedo MD @ 08/04/2022 6:08:44 PM (Electronically Signed)
[2022-08-04] MEDS: ONDANSETRON 2 MG/ML inj IVP (17:52)
--- NOTE | 2022-08-04 19:03 | PC.NURSE ---
Pt arrived to floor from surgery with NG in place and PIIC line. Pt's dressing is dry and intact. PT's VSS. Pt arrived to floor at 11am. By 1400 there was scant output in NG tubing bond underwriter consulted Araceli LAGUNA to assist. RN listened to stomach and placement seemed to be okay. Bowel sounds present. By 1600 there was still no output bond underwriter asked Milvia LAGUNA for assistance. Milvia LAGUNA listened for swoosh in stomach when air inserted into NG tube; air was heard. Supervisor Heading shut off suction for NG tube at this time. Supervisor Heading informed charge nurse of issue and that bond underwriter could not find any documentation from OR about placing NG or XRAY verification. RN reached out to surgeon and STAT order placed to check placement. When Xray results came back it showed that NG tube needed to be advanced. Charge nurse advanced placement to 65 from the previous 56 placement. NG now has output. Pt has had pain ranging from 3.5-5 see EMAR for intervention. Pt states that pain is more in his back and not his stomach. Pt refused repositioning. Ice packs given. PIIC line dressing changed at 1330.
--- NOTE | 2022-08-04 19:13 | CRLHL7_ITS ---
For Patients: As a result of the Century Cures Act, medical imaging exams and procedure reports are released immediately into your electronic medical record. You may view this report before your referring provider. If you have questions, please contact your health care provider. INDICATION: NG tube. TECHNIQUE: Chest 1 views. COMPARISON: August 04, 2022. FINDINGS: Cardiovascular and mediastinum: Heart size and vasculature are normal in caliber and appearance. NG tube with tip and proximal port overlying the stomach. Lungs and pleural spaces: Lungs are clear. No sign of infiltrate or mass. No sign of pleural effusion. No pneumothorax. Bones and soft tissues: Similar possible free intraperitoneal air, possibly from recent surgery. IMPRESSION: NG tube with tip and proximal port overlying the stomach. Dictated by Sreekanth Manzanares MD @ 08/04/2022 8:06:11 PM (Electronically Signed)
[2022-08-04] MEDS: BENZOCAINE/MENTHOL 1 EACH LOZENGE MUCOUS MEM (19:21)
[2022-08-04] MEDS: KETOROLAC 15 MG/ML inj IVP (19:45)
[2022-08-05] VITALS (8 sets, daily range): BP systolic 124–149; BP diastolic 79–89; PULSE 79–93; RESP 16–20; TEMP 36.2–37.7; O2SAT 95–98
[2022-08-05] MEDS: BENZOCAINE/MENTHOL 1 EACH LOZENGE MUCOUS MEM ×4 (01:02→23:16)
[2022-08-05] MEDS: HYDROmorphone 0.5 mg/0.5 ml inj IVP ×9 (01:02→20:13)
[2022-08-05] MEDS: SODIUM CHLORIDE 0.9 % (FLUSH) 10 ML SYRINGE IVF ×10 (01:03→23:16)
[2022-08-05] MEDS: KETOROLAC 15 MG/ML inj IVP ×4 (02:58→23:16)
[2022-08-05] MEDS: LACTATED RINGERS 1000 ML 1,000 ML 100 ML IV ×2 (06:58→17:11)
[2022-08-05 07:04] LABS: Basophils Percent Auto 0.1 % (0.0-3.0); Eosinophils Percent Auto 0.2 % (0.0-7.0); Hematocrit 35.9 % (37.0-53.0); Hemoglobin* 12.2 gm/dL (13.5-17.5); Immature Granulocytes Pct Auto 0.2 %; Lymphocytes Percent Auto 15.6 % (20-44); Mean Corpuscular HGB Conc 34 gm/dL (32-36); Mean Corpuscular Hemoglobin 32 pg (26-34); Mean Corpuscular Volume 93 fL (80-100); Monocytes Percent Auto 7.2 % (0.0-11.0); Neutrophils Percent Auto 76.7 % (42.0-72.0); Platelet Count* 410 K/uL (140-440); RDW Coefficient of Variation % 13.1 % (11.5-15.5); Red Blood Count 3.86 m/uL (4.30-5.90); White Blood Count* 15.24 K/uL (4.50-11.00)
[2022-08-05 07:06] LABS: Slide Review Reflex No
[2022-08-05 07:21] LABS: Chloride* 103 mmol/L (96-114); Potassium* 3.9 mmol/L (3.6-5.1); Sodium* 136 mmol/L (135-149)
[2022-08-05 07:24] LABS: Carbon Dioxide* 23 mmol/L (20-32); Creatinine* 0.9 mg/dL (0.5-1.5); Estimated Glomerular Filt Rate 104 ml/min
[2022-08-05 07:25] LABS: Blood Urea Nitrogen* 15 mg/dL (7-30); Calcium* 8.2 mg/dL (8.4-10.6); Glucose* 84 mg/dL (60-115); Magnesium* 2.2 mg/dL (1.5-2.6)
--- NOTE | 2022-08-05 07:40 | PC.NURSE ---
END OF SHIFT NOTE: PT DENIES CP, SOB, N/V. HAS REMAINED IN BED THE ENTIRETY OF THIS SHIFT. VSS ON RA; MAX TEMP 99.8F. NG PLACED TO 65 cm TO RIGHT NARE, ON LIS; PATENT WITH GREEN/BROWN OUTPUT OF 550ML FOR SHIFT.?PT C/O CHRONIC BACK PAIN. C/O THROAT AND ABDOMINAL DISCOMFORT. WITH RELIEF FROM LOZENGE AND PRN PAIN RELIEVER (SEE EMAR). CALL LIGHT WITHIN PT?S REACH. VERTICAL ABDOMINAL INCISION CDI. RIGHT SIDE LAP SITE JOSÉ LUIS AND CDI. LR @100 ML/HR.?
--- NOTE | 2022-08-05 10:38 | P.GSPN_ITS ---
Subjective Subjective Date Seen: 08/05/22 Interval history: Patient complains of pain especially in his back because he was lying around in bed. He is bothered by his NG tube. His NG tube was repositioned and started to suction gastric contents. Patient denied nausea. Exam Narrative: Exam Narrative: Abdomen is soft, not distended, not tender to palpation bilateral lower quadrants, there is some tenderness to palpation around the midline laparotomy incision. The dressings over the incision are dry. Const: Vital Signs, click to edit/add: Vital Signs - 24 hr 08/04/22 10:40 08/04/22 10:45 08/04/22 10:50 Temperature 98.0 F Pulse Rate 76 76 Pulse Rate [Pulse Oximeter] Respiratory Rate 16 14 Blood Pressure 125/71 126/69 Blood Pressure [Le ft Arm] Pulse Oximetry 96 [facility] Room Air 08/04/22 11:00 08/04/22 11:00 08/04/22 11:15 Temperature 98.2 F 98.2 F 98.1 F Pulse Rate 82 Pulse Rate [Pulse Oximeter] 82 73 Respiratory Rate 18 18 18 Blood Pressure Blood Pressure [Le ft Arm] 126/82 126/82 122/79 Pulse Oximetry 91 92 [facility] Air 08/04/22 11:30 08/04/22 11:45 08/04/22 12:00 Temperature 98.1 F 98.1 F 98.6 F Pulse Rate Pulse Rate [Pulse Oximeter] 85 90 86 Respiratory Rate 18 16 16 Blood Pressure Blood Pressure [Le ft Arm] 121/78 123/78 124/73 Pulse Oximetry 95 96 96 [facility] Room Air Room Air 08/04/22 12:30 08/04/22 13:00 08/04/22 14:00 Temperature 98.4 F 98.4 F 97.7 F Pulse Rate Pulse Rate [Pulse Oximeter] 78 86 85 Respiratory Rate 16 16 16 Blood Pressure Blood Pressure [Le ft Arm] 128/76 129/69 120/72 Pulse Oximetry 95 94 97 [facility] Room Air Room Air 08/04/22 15:00 08/04/22 16:00 08/04/22 17:00 Temperature 98.2 F 98.2 F 98.4 F Pulse Rate Pulse Rate [Pulse Oximeter] 84 90 92 Respiratory Rate 16 16 14 Blood Pressure Blood Pressure [Le ft Arm] 128/75 129/71 Pulse Oximetry 99 96 98 Oxygen Delivery Me thod Room Air Room Air Room Air 08/04/22 19:13 08/05/22 00:38 08/05/22 00:38 Temperature 98.9 F 99.4 F Pulse Rate Pulse Rate [Pulse Oximeter] 95 93 93 Respiratory Rate 20 18 18 Blood Pressure Blood Pressure [Le ft Arm] 134/85 149/87 H Pulse Oximetry 98 98 Oxygen Delivery Me thod Room Air Room Air 08/05/22 02:58 08/05/22 03:00 08/05/22 07:00 Temperature 99.8 F H 99.8 F H 97.9 F Pulse Rate Pulse Rate [Pulse Oximeter] 93 87 Respiratory Rate 20 16 Blood Pressure Blood Pressure [Le ft Arm] 138/82 139/79 Pulse Oximetry 96 96 Oxygen Delivery Me thod Room Air Room Air Progress Note: A&P Assessment and plan (1) S/P exploratory laparotomy: Status: Acute Assessment and Plan: 52-year-old male s/p exploratory laparotomy and small-bowel resection POD 1. Will continue NPO and IV fluids. Patient is really bothered by his NG tube. Will clamp NG tube and see how he is doing today. If he does not develop nausea vomiting, we can remove his NG but will continue to keep him NPO until return of bowel function. I also discussed with the patient to ambulate at least 3 times a day. (2) S/P small bowel resection: Status: Acute
--- NOTE | 2022-08-05 15:16 | PC.NURSE ---
Alert and oriented x 3. Lung sounds clear. Bowel sounds hypoactive, abdomen firm and tender. Dressing to midline clean, dry and intact. Right lateral laprascopic incision free of any signs or symptoms of infection. Patient reports pain to low back, chronic pain due to previous back surgeries, pain to throat from NG tube and pain to abdominal incision. Pain relief received with use of IV dilaudid and toradal and use of ice pack to incision. Patient ambulated in [facility] x 2 with SBA. Back pain improved with position change and walking. No flatus present at this time. NG tube patent and draining brown/serous fluid, patient tolerated NG clamped from [id number], reattached to intermittent suction and had 70cc return after clamping. 200cc total output from NG tube. Patient advocate contacted due to patient reports of unhappiness with how his hospital stay started.
--- NOTE | 2022-08-05 19:52 | PC.NURSE ---
End of shift. pt has been very pleasant. pain 3-4/10 and he os getting IV Dilaudid. Bowel sounds are hypoactive, abdomen soft and tender.? Dressing to midline clean, dry and intact.? lap site site ok Pt walked in hallway x 1 with SBA.? Back pain is better he passed gas 2 times NG tube patent and draining brown/serous fluid, NG clamped from [id number] he had 120. he was at 800 out at 1500 and canister changed @ 1900 it was full.
[2022-08-06] MEDS: BENZOCAINE/MENTHOL 1 EACH LOZENGE MUCOUS MEM ×5 (02:57→20:17)
[2022-08-06] MEDS: HYDROmorphone 0.5 mg/0.5 ml inj IVP ×6 (02:57→20:17)
[2022-08-06] MEDS: LACTATED RINGERS 1000 ML 1,000 ML 100 ML IV ×3 (02:58→21:53)
[2022-08-06 03:00] VITALS: BP 145/80; PULSE 84; RESP 18; TEMP 37.2; O2SAT 95
--- NOTE | 2022-08-06 05:57 | PC.NURSE ---
Shift note: Surgical dressing is C/D/I, surrounding tissue is intact and pink. Pt rates pain 3-4/10, RN treated per eMAR and pt able to rest. Pt stated he passed a little gas, however bowel sounds very hypoactive, NG output still large amounts
[2022-08-06 08:09] VITALS: BP 136/81; PULSE 83; RESP 16; TEMP 37.2; O2SAT 96
--- NOTE | 2022-08-06 08:49 | P.GSPN_ITS ---
Subjective Subjective Date Seen: 08/06/22 Interval history: Patient feels like he is doing better this morning compared to yesterday. He was able to get good sleep last night. He denies any back pain. His abdomen still feels slightly distended and tender, but this is being controlled with pain medicine. His biggest complaint is pain from the NG tube, although he understands why it is in place. He has passed a small amount of gas several times over the last day. No bowel movement. He is not yet feeling hungry. Exam Narrative: Exam Narrative: General: Alert and oriented, no acute distress HEENT: NG tube remains in place dark bilious output, copious amount in canister (650 mL overnight) Abdomen: Mild distention, appropriately tender over incision sites. Steri- Strips clean/dry/intact Const: Vital Signs, click to edit/add: Vital Signs - 24 hr 08/05/22 11:00 08/05/22 15:30 08/05/22 15:30 Temperature 97.2 F L 97.7 F Pulse Rate [Pulse Oximeter] 92 83 83 Respiratory Rate 18 18 18 Blood Pressure [Le ft Arm] 124/89 147/80 H Pulse Oximetry 96 95 Oxygen Delivery Me thod Room Air Room Air 08/05/22 19:00 08/05/22 23:00 08/05/22 23:00 Temperature 99 F 99.3 F Pulse Rate [Pulse Oximeter] 82 82 79 Respiratory Rate 18 18 16 Blood Pressure [Le ft Arm] 138/81 144/83 H Pulse Oximetry 95 96 Oxygen Delivery Me thod Room Air Room Air 08/06/22 03:00 Temperature 99.0 F Pulse Rate [Pulse Oximeter] 84 Respiratory Rate 18 Blood Pressure [Le ft Arm] 145/80 H Pulse Oximetry 95 Oxygen Delivery Me thod Room Air Progress Note: A&P Assessment and plan (1) S/P exploratory laparotomy: Status: Acute Assessment and Plan: 52-year-old male s/p exploratory laparotomy and small-bowel resection POD 2. Vital signs stable overnight. He has had some return of bowel function with passage of gas, however he continues to have a copious amount of NG tube output that is dark bilious (650 mL overnight). At this time would recommend continuing the NG tube to low intermittent suction. Continue NPO and IV fluids. Patient was encouraged to ambulate. Anticipate, if patient does have return of bowel function that NG tube output would start to lighten in color and decrease in quantity. This was discussed at length with the patient, who is agreeable with the current plan. (2) S/P small bowel resection: Status: Acute
[2022-08-06] MEDS: KETOROLAC 15 MG/ML inj IVP ×3 (10:11→22:17)
[2022-08-06 13:17] VITALS: BP 135/77; PULSE 87; RESP 16; TEMP 36.8; O2SAT 97
[2022-08-06] MEDS: SODIUM CHLORIDE 0.9 % (FLUSH) 10 ML SYRINGE IVF ×4 (15:29→22:17)
[2022-08-06 15:30] VITALS: BP 152/94; PULSE 90; RESP 18; TEMP 37.1; O2SAT 96
--- NOTE | 2022-08-06 16:09 | PC.NURSE ---
Pt rating his abdominal pain 5 out of 10. IV Dilaudid 0.5 mg provided and a cepastat lozenge for his ST. NG at 65cm and green particulate drainage is flowing smoothly at LIS. Pt allowed to rest in quiet room. Toradol will be given when available per order protocol. Pt stated he will walk in the hallway after his family comes to visit.
--- NOTE | 2022-08-06 18:45 | PC.NURSE ---
Pt declined walk after family visit at 1800 stating he wanted to sleep, I've only slept about 4 hours in the past 35 per pt report. Pt received dilaudid 0.5 mg IV at 1758 pm for pain level of 3 and to promote rest/relaxation. Declined offer of aromatherapy or white noise machine. Mood has improved since 3:20 pm assessment. Report will be given to oncoming shift RN.
[2022-08-06 20:02] VITALS: BP 144/90; PULSE 95; RESP 18; TEMP 36.9; O2SAT 95
[2022-08-06 22:07] VITALS: BP 135/81; PULSE 98; RESP 16; TEMP 37.1; O2SAT 95
[2022-08-07] MEDS: HYDROmorphone 0.5 mg/0.5 ml inj IVP ×3 (00:43→14:17)
[2022-08-07] MEDS: BENZOCAINE/MENTHOL 1 EACH LOZENGE MUCOUS MEM ×3 (00:43→08:41)
[2022-08-07] MEDS: KETOROLAC 15 MG/ML inj IVP ×2 (04:13→11:10)
[2022-08-07 04:14] VITALS: BP 148/83; PULSE 87; RESP 16; TEMP 36.9; O2SAT 96
[2022-08-07] MEDS: SODIUM CHLORIDE 0.9 % (FLUSH) 10 ML SYRINGE IVF ×2 (04:14→14:20)
--- NOTE | 2022-08-07 07:27 | PM.GSPN ---
Subjective Subjective Date Seen: 08/07/22 Interval history: Patient was unable to get any sleep last night. He does think that he is feeling better today compared to yesterday. His abdominal pain is ?the best it has been since surgery?. He has continued to pass gas and feeling very hungry this morning. He has walked the halls 4 different times throughout the night. Exam Narrative: Exam Narrative: General: Alert and oriented, no acute distress. Nontoxic in appearance HEENT: NG tube remains in place, dark bile tinged output in clamped tube Abdomen: Soft, mild distension. Appropriately tender over incision sites. There is some slight erythema around the umbilical incision. Steri-Strips remain in place. Const: Vital Signs, click to edit/add: Vital Signs - 24 hr 08/06/22 08:09 08/06/22 13:17 08/06/22 15:30 Temperature 98.9 F 98.2 F 98.8 F Pulse Rate [Left A pical] 90 Pulse Rate [Pulse Oximeter] 83 87 90 Respiratory Rate 16 16 18 Blood Pressure [Le ft Arm] 136/81 135/77 152/94 H Pulse Oximetry 96 97 96 Oxygen Delivery Me thod Room Air Room Air Room Air 08/06/22 20:02 08/06/22 22:07 08/07/22 04:14 Temperature 98.5 F 98.8 F 98.5 F Pulse Rate [Left A pical] 87 Pulse Rate [Pulse Oximeter] 95 98 Respiratory Rate 18 16 16 Blood Pressure [Le ft Arm] 144/90 H 135/81 148/83 H Pulse Oximetry 95 95 96 Oxygen Delivery Me thod Room Air Room Air Room Air Progress Note: A&P Assessment and plan (1) S/P exploratory laparotomy: Status: Acute Assessment and Plan: 52-year-old male s/p exploratory laparotomy and small-bowel resection POD 3. Vital signs stable overnight. He has had passage of gas and return of appetite. NG tube output does appear to have decreased overnight (300 since 10:00 p.m.) his NG tube was clamped this morning so the patient could ambulate, recommend a clamping trial of 6 hours. After 6 hours please reconnect the NG tubing to suction and record the output. If patient does not have any increased abdominal pain or nausea while clamped and output is less than 300 mL will plan for NG tube removal. (2) S/P small bowel resection: Status: Acute
[2022-08-07 07:40] VITALS: BP 148/83; PULSE 105; RESP 16; TEMP 37.1; O2SAT 96
--- NOTE | 2022-08-07 07:54 | PC.NURSE ---
[id number]: Patient independent and walked halls x3. Passing small amounts of gas. BS active. Midline abdomen incision and 3 lap sites w/steri strips with old drainage. Denies N/V. Patient verbalized difficulty sleeping. Entry Manager offered white noise machine. Patient declined aroma therapy. Pain 3/10 with PRN Toradol Q6H for relief.
[2022-08-07] MEDS: LACTATED RINGERS 1000 ML 1,000 ML 100 ML IV ×2 (08:29→18:08)
[2022-08-07 13:00] VITALS: BP 115/88; PULSE 100; RESP 18; TEMP 37; O2SAT 96
[2022-08-07 15:00] VITALS: BP 128/57; PULSE 100; PULSE 94; RESP 18; TEMP 36.8; O2SAT 98
--- NOTE | 2022-08-07 15:37 | PC.NURSE ---
Please see eMar for meds provided on day shift. NG clamped until 1200 noon. Residual drainage when hooked up again to LIS was 25cc. RN notified Dr. Hernandez via phone and order to d/c NG obtained. Diet changed to CL adv. slowly. NG discontinued at 1215 pm and pt tolerated procedure well. Pt UAL in room and hallway. Smiling, performing ADLS, passing flatus liberally. No increased pain or nausea after broth and apple juice. Pt rating his pain 2.5-3. Continue POC, report to Eden LAGUNA for evening shift.
[2022-08-07] MEDS: HYDROCODONE-ACETAMIN 5-325 MG 1 TAB PO (18:15)
[2022-08-07 21:00] VITALS: BP 128/62; PULSE 90; RESP 16; TEMP 36.9; O2SAT 95
[2022-08-08] MEDS: HYDROCODONE-ACETAMIN 5-325 MG 1 TAB PO ×3 (00:09→13:08)
[2022-08-08] MEDS: MELATONIN 3 MG TABLET PO (00:09)
[2022-08-08] MEDS: SODIUM CHLORIDE 0.9 % (FLUSH) 10 ML SYRINGE IVF (00:09)
[2022-08-08 00:10] VITALS: PULSE 86; RESP 16; TEMP 36.8; O2SAT 96
[2022-08-08 03:00] VITALS: RESP 16
[2022-08-08] MEDS: LACTATED RINGERS 1000 ML 1,000 ML 100 ML IV (04:15)
--- NOTE | 2022-08-08 06:04 | PC.NURSE ---
[id number]: Patient in better spirits this shift than last. Independent. Walked halls x2. Motivated to D/C. BS active. Passing gas but no BM overnight. Pain 3/10 with PRN Rule for relief. Denies N/V. Tolerating clears. Midline incision and 3 lap sites w/steri strips C/D/I.
[2022-08-08 07:00] VITALS: BP 140/96; PULSE 82; RESP 16; TEMP 36.8; O2SAT 98
--- NOTE | 2022-08-08 08:42 | PM.GSPN ---
Subjective Subjective Date Seen: 08/08/22 Interval history: Patient feels great this morning. He has been feeling very hungry and tolerating clear liquids without difficulty. He continues to pass ?a lot of gas?, no bowel movement but he feels like 1 is coming. Denies any abdominal pain or distension. Has been ambulating without difficulty. ?Feels like his old self?. Exam Narrative: Exam Narrative: General: Alert and oriented, no acute distress Abdomen: Soft, nontender nondistended. Incisions clean/dry/intact. Some ecchymoses on the inferior aspect the midline incision. No concern for infection. Steri-Strips remain in place. Const: Vital Signs, click to edit/add: Vital Signs - 24 hr 08/07/22 13:00 08/07/22 15:00 08/07/22 15:00 Temperature 98.6 F 98.2 F Pulse Rate [Left A pical] 100 Pulse Rate [Pulse Oximeter] 100 94 100 Respiratory Rate 18 18 18 Blood Pressure [Le ft Arm] 115/88 128/57 L Pulse Oximetry 96 98 Oxygen Delivery Me thod Room Air Room Air 08/07/22 21:00 08/08/22 00:10 08/08/22 03:00 Temperature 98.5 F 98.2 F Pulse Rate [Left A pical] Pulse Rate [Pulse Oximeter] 90 86 Respiratory Rate 16 16 16 Blood Pressure [Le ft Arm] 128/62 Pulse Oximetry 95 96 Oxygen Delivery Me thod Room Air Progress Note: A&P Assessment and plan (1) S/P exploratory laparotomy: Status: Acute Assessment and Plan: 52-year-old male s/p exploratory laparotomy and small-bowel resection POD 4. NG tube removed yesterday. Continues to pass gas, no bowel movement. Tolerating clear liquid diet with no nausea or increasing abdominal pain. Okay to advance diet to regular this morning. Discussed with patient a suppository to help facilitate a bowel movement. Anticipate discharge later today versus tomorrow. In order for patient to discharge he does need to be ambulated without difficulty, tolerating oral pain medicines, having a regular diet and had at least 1 bowel movement while inpatient. (2) S/P small bowel resection: Status: Acute
[2022-08-08 12:01] VITALS: BP 126/69; PULSE 82; RESP 16; TEMP 36.8
--- NOTE | 2022-08-08 13:51 | PC.NURSE ---
Discharge: Patient is alert and oriented x4, pleasant and cooperative. Pt. tolerating a reg diet, denies N/V/SOB. Independent.?Walked halls x2.? Motivated to D/C.? BS active.? Passing gas and had a regular BM prior to lunch. Pain 3/10 with PRN P[place]ibone for relief.?Midline incision and 3 lap sites w/steri strips C/D/I.?Patient discharged at 1310, IV removed intact. PICC line removed intact. Patient signed and verbalized understanding of discharge instructions. Belongings sheet signed.
--- NOTE | 2022-08-08 15:06 | P.DS_ITS ---
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 He underwent an exploratory laparotomy with small bowel resection. Post op he had a NGT in place until he demonstrated return of bowel function on POD3. His diet was then slowly advanced to regular. At the time of discharge patient was tolerating a regular diet, having bowel movements, ambulating without difficulty and pain was well controlled with oral pain medication. Time Spent with Patient Time attestation: Total time spent providing and/or coordinating discharge services: Exam Narrative: Exam Narrative: Please see exam from progress note of same date. Const: Vital Signs, click to edit/add: Vital Signs - 24 hr 08/07/22 21:00 08/08/22 00:10 08/08/22 03:00 Temperature 98.5 F 98.2 F Pulse Rate Pulse Rate [Pulse Oximeter] 90 86 Respiratory Rate 16 16 16 Blood Pressure Blood Pressure [Le ft Arm] 128/62 Pulse Oximetry 95 96 Oxygen Delivery Me thod Room Air 08/08/22 07:00 08/08/22 07:00 08/08/22 12:01 Temperature 98.2 F 98.2 F Pulse Rate 82 Pulse Rate [Pulse Oximeter] 82 82 Respiratory Rate 16 16 16 Blood Pressure 126/69 Blood Pressure [Le ft Arm] 140/96 H Pulse Oximetry 98 Oxygen Delivery Me thod Room Air Discharge Plan Discharge Disposition: Home, Self-Care Date of Admission: 08/04/22 06:14 Attending Provider on Discharge: Sharron Hernandez Primary Care Provider: Willis Martínez Condition: Improved Anticipated Discharge Date/Time: 08/08/22 08:36 Discharge Medications: New hydrocodone-acetaminophen 5-325 mg Tablet 1 - 2 tab PO Q6H PRN (Reason: Pain) Qty: 20 0RF senna 8.6 mg capsule 8.6 mg PO DAILY PRN (Reason: constipation) Qty: 90 0RF Discharge Orders: Discharge Order (Routine); Ordered 08/08/22 Ordered By: Sharron Hernandez Patient Education: Hydrocodone/Acetaminophen (By mouth), Senna (By mouth), Bowel Resection (DC) Additional Instructions: You were prescribed a narcotic pain medication. In addition you may supplement with Tylenol and/or ibuprofen. Be sure to not exceed greater than 4 g of Tylenol in a 24 hour period. While on narcotic pain medicine please take stool softeners. A prescription of stool softeners has been sent to the pharmacy. Stop if having greater than 2 stools per day. Okay to shower right away. Do not soak in a bath. The last Steri-Strips to fall off on their own. Activity Level: No strenuous activity Activity Detail: Activity as tolerated. Avoid strenuous activity. No lifting greater than 20 lb for 6 weeks after your surgery. Discharge Diet: Regular Follow Up Appointments: Willis Martínez MD [Primary Care Provider] - Karen Henderson DO [Staff Physician] - 08/16/22 2:55 pm (At [facility]. Primary care provider on sabbatical. ) Forms: [facility] Info Instructions
== END 2022-08-08 13:10 | disposition home or self-care (01) | DRG 327 ==
PROVIDERS: Admitting Provider Surgery; PCP Surgery; Visit Provider Surgery
PROC: 0DTB0ZZ Resection of Ileum, Open Approach (ICD-10-PCS; CPT 49000; principal; 2022-08-04 07:15)
DX: K65.1 Peritoneal abscess (principal); K56.600 Partial intestinal obstruction, unspecified as to cause
CPT/HCPCS: 00790; 00840; 36415; 71045; 76942; 80048; 83735; 84100; 85025; 88307; A4221; A9270; C9290; J0131; J0330; J0690; J1100; J1170; J1885; J2175; J2250; J2405; J2704; J2710; J3010; J3490; J7120

== ENCOUNTER 2023-10-27 08:20 | Emergency (ER) | payer BC, SELFPAY ==
[2023-10-27] VITALS (17 sets, daily range): BP systolic 134–146; BP diastolic 84–97; PULSE 57–88; RESP 16; TEMP 36.8; O2SAT 94–98; BMI 24.4
--- NOTE | 2023-10-27 08:43 | CRLHL7_ITS ---
For Patients: As a result of the Century Cures Act, medical imaging exams and procedure reports are released immediately into your electronic medical record. You may view this report before your referring provider. If you have questions, please contact your health care provider. Indication: Lower chest and back pain. Technique: CTA of the chest, abdomen and pelvis (dissection protocol) was performed following the administration of 95 mL Isovue 370. Noncontrast chest CT was also performed. Comparison: 08/04/2022. 07/26/2022 Findings: CTA: No aortic hyperdensity on noncontrast CT to suggest acute intramural hematoma. Left three-vessel aortic arch. Thoraco abdominal aorta is normal in caliber and course. No aortic dissection, aneurysm or evidence of rupture. No appreciable atherosclerotic plaques. No high-grade luminal narrowing. Narrowing of the proximal celiac artery with mild poststenotic dilation, which can be seen in the setting of median arcuate ligament compression. SMA and DIANN are patent. Bilateral renal arteries are patent. Iliofemoral arteries are normal in caliber. CHEST Lungs and pleura: Multiple calcified pulmonary nodules. Noncalcified 4 mm left upper lobe pulmonary nodule measures 4 mm (5/47). Additional noncalcified left lower lobe pulmonary nodule measures 5 mm (5/69). No focal consolidation. Minimal bilateral lower lobe dependent atelectasis. No pleural effusion or pneumothorax. Heart and great vessels: Heart is top-normal in size. No pericardial effusion. Aorta and pulmonary artery are normal in caliber. Thyroid and mediastinum: Thyroid is normal. No mediastinal lymphadenopathy by size criteria. Chest wall: Minimal chronic appearing superior endplate compression deformities at T1-T3. Mild chronic anterior wedging at T11. Multilevel degenerative disc disease. ABDOMEN AND PELVIS Liver: Subcentimeter enhancing foci within the inferior aspect of the right hepatic lobe appear wedge-shaped and are favored to be vascular in etiology. Hepatomegaly measuring 20.7 cm in length. Normal gallbladder. No biliary ductal dilation. Pancreas: Unremarkable. Spleen: Unremarkable. Adrenals: Unremarkable. Kidneys: Unremarkable. No nephrolithiasis or hydronephrosis. Aorta/IVC: Normal in caliber. Lymph nodes: No lymphadenopathy. Bowel: Nonobstructed bowel. Extensive descending and sigmoid colon diverticula without findings of acute diverticulitis. Normal appendix. No intraperitoneal free air or fluid. Pelvis: Dystrophic prostate calcifications. Bones/body wall: Postoperative changes following bilateral inguinal hernia repair. Mild multilevel degenerative disc disease. Impression: 1. No evidence of acute aortic syndrome. 2. No acute abnormality identified in the chest, abdomen, or pelvis. 3. Scattered calcified granulomas with additional small noncalcified pulmonary nodules in the left upper and lower lobes. If this patient is at increased risk of lung cancer, consider chest CT follow-up in 12 months. 4. Hepatomegaly. 5. Colonic diverticulosis. 6. Additional chronic/incidental findings as described. Please note that all CT scans at this facility use dose modulation, iterative reconstruction, and/or weight-based dosing when appropriate to reduce radiation dose to as low as reasonably achievable. Dictated by Luann Oliver MD @ 10/27/2023 10:05:53 AM (Electronically Signed)
--- NOTE | 2023-10-27 08:44 | ED_ITS ---
HPI - General Adult General Chief complaint: Chest Pain Stated complaint: Chest pain through the back Time Seen by Provider: 10/27/23 08:29 History of Present Illness HPI narrative: This 53-year-old male comes in reporting 2 or 3 weeks of pain in his lower chest and upper abdomen that seems to radiate through to his back. He states that the pain comes and goes but reports that he does not typically sleep more than 3 hours without waking with some pain. He found some relief by drinking some milk and taking Tums but is not sure if this was actually helping as the pain does come and go. He does not report any nausea, vomiting, lightheadedness, shortness of breath, diaphoresis, or exercise intolerance. He does have a history of a small-bowel resection with obstruction. Related Data Previous Rx's ?Medication ?Instructions ?Recorded pantoprazole 40 mg tablet,delayed 40 mg PO DAILY #30 tabs 10/27/23 release (Protonix) Allergies Allergy/AdvReac Type Severity Reaction Status Date / Time No Known Drug Allergies Allergy Verified 10/27/23 09:09 Review of Systems Status of ROS: Reports: 10 or more systems reviewed and unremarkable except as noted in History and below Narrative: Constitutional: No fevers, no weight gain or loss. Eyes: No discharge. No vision changes. HENT: No congestion, no sore throat, no ear pain. Cardiovascular: No palpitations. Respiratory: No shortness of breath, no wheezes, no cough. Gastrointestinal: No vomiting, no diarrhea. Upper epigastric pain as described above. Genitourinary: No dysuria, no hematuria. Musculoskeletal: Normal range of motion. Skin: No rashes, no pruritis. Neurological: No dizziness, weakness, sensory change, speech change. Endo/Heme/Allergies: No bruising or bleeding. No polydipsia. Pysch: no suicidality, no anxiety, no insomnia. All other systems reviewed and are negative. [facility] Medical History (Updated 10/27/23 @ 11:10 by Odell Weldon MD) Chronic pain ?G89.29 - Other chronic pain (ICD-10) Lumbar disc disease ?M51.9 - Unspecified thoracic, thoracolumbar and lumbosacral intervertebral disc disorder (ICD-10) Surgical History (Updated 08/16/22 @ 00:00 by Background Daemon) S/P small bowel resection ?Z90.49 - Acquired absence of other specified parts of digestive tract (ICD- 10) S/P exploratory laparotomy ?Z98.890 - Other specified postprocedural states (ICD-10) History of inguinal hernia repair ?Z98.890 - Other specified postprocedural states (ICD-10) ?Z87.19 - Personal history of other diseases of the digestive system (ICD-10) History of lumbar discectomy ?Z98.890 - Other specified postprocedural states (ICD-10) Family History (Updated 07/26/22 @ 22:59 by Bryant Cardenas MD) Father Atrial fibrillation Mother Alzheimers disease Social History (Updated 07/26/22 @ 22:59 by Bryant Cardenas MD) Narrative: He lives with his daughter and son in [place]. He works as a associate program manager. He does not smoke. He does not drink alcohol. He does use cannabis. Highest level of school completed/degree received: high school graduate Smoking Status: Never smoker Do you use any of these nicotine containing products: None How often do you have a drink containing alcohol: monthly or less How many standard drinks containing alcohol do you have on a typical day: 1 or 2 How often do you have six or more drinks on one occasion: Never AUDIT-C Alcohol total score: 1 Non-prescribed substance use: denies use Caffeine: No service: No Exam Narrative: Exam Narrative: Constitutional: Well-developed, well-nourished, no acute distress. HEENT: Normocephalic, atraumatic. Neck: Normal range of motion. Nontender. Supple. Heart: Regular. No murmurs. Normal rate. Intact distal pulses. Lungs: Clear to auscultation. No chest discomfort. No wheezes, rhonchi, or rales. Abdomen: Normal bowel sounds. Nontender. No rebound tenderness. Genitalia: Deferred. Back: No midline tenderness. Normal range of motion. Extremities: Normal range of motion. No injury. Skin: Intact. No rash. Warm. No erythema or pallor. Neurologic: No altered sensation. No weakness. Alert and oriented. Psychiatric: No suicidality. No anxiety or depression. No insomnia. Nursing notes and vitals signs are reviewed. Const: Vital Signs, click to edit/add: Vital Signs - 24 hr 10/27/23 08:24 10/27/23 08:30 10/27/23 08:33 Temperature 98.3 F Pulse Rate 71 Pulse Rate [Pulse Oximeter] 88 Respiratory Rate 16 Blood Pressure 143/97 H Blood Pressure [Ri ght Upper Arm] 134/90 H Pulse Oximetry 98 97 95 Oxygen Delivery Me thod Room Air 10/27/23 08:34 10/27/23 08:42 10/27/23 08:46 Temperature Pulse Rate 73 70 Pulse Rate [Pulse Oximeter] Respiratory Rate Blood Pressure 146/97 H 143/92 H Blood Pressure [Ri ght Upper Arm] Pulse Oximetry 94 96 Oxygen Delivery Me thod 10/27/23 08:47 10/27/23 09:00 10/27/23 09:01 Temperature Pulse Rate 71 64 68 Pulse Rate [Pulse Oximeter] Respiratory Rate Blood Pressure 142/93 H Blood Pressure [Ri ght Upper Arm] Pulse Oximetry 95 97 96 Oxygen Delivery Me thod 10/27/23 09:17 10/27/23 09:30 10/27/23 09:32 Temperature Pulse Rate 69 57 L 64 Pulse Rate [Pulse Oximeter] Respiratory Rate Blood Pressure 144/87 H Blood Pressure [Ri ght Upper Arm] Pulse Oximetry 97 95 95 Oxygen Delivery Me thod 10/27/23 09:45 10/27/23 09:46 10/27/23 10:00 Temperature Pulse Rate 64 66 61 Pulse Rate [Pulse Oximeter] Respiratory Rate Blood Pressure 141/84 H Blood Pressure [Ri ght Upper Arm] Pulse Oximetry 95 97 96 Oxygen Delivery Me thod 10/27/23 10:02 10/27/23 10:30 Temperature Pulse Rate 64 Pulse Rate [Pulse Oximeter] Respiratory Rate 16 Blood Pressure 140/87 H Blood Pressure [Ri ght Upper Arm] Pulse Oximetry 96 Oxygen Delivery Me thod Course Vital Signs Vital signs: Initial Vital Signs Temperature 98.3 F 10/27/23 08:24 Temperature Source Temporal Artery Scan 10/27/23 08:24 Pulse Rate 88 10/27/23 08:24 Respiratory Rate 16 10/27/23 08:24 Blood Pressure 134/90 H 10/27/23 08:24 Blood Pressure Mean 104 10/27/23 08:24 Blood Pressure Position Sitting 10/27/23 08:24 Pulse Oximetry 98 10/27/23 08:24 Oxygen Delivery Method Room Air 10/27/23 08:24 Vital Signs Temperature 98.3 F 10/27/23 08:24 Pulse Rate 88 10/27/23 08:24 Respiratory Rate 16 10/27/23 08:24 Blood Pressure 134/90 H 10/27/23 08:24 Pulse Oximetry 98 10/27/23 08:24 Oxygen Delivery Method Room Air 10/27/23 08:24 Temperature 98.3 F 10/27/23 08:24 Pulse Rate 64 10/27/23 10:02 Respiratory Rate 16 10/27/23 10:30 Blood Pressure 140/87 H 10/27/23 10:02 Pulse Oximetry 96 10/27/23 10:02 Oxygen Delivery Method Room Air 10/27/23 08:24 Medications Administered Medications: Discontinued Medications Generic Name Dose Route Start Last Admin Trade Name David PRN Reason Stop Dose Admin Lidocaine/Aluminum/Magnesium/Simeth 30 ml 10/27/23 10:21 10/27/23 10:35 Gi Cocktail (Visc Lido/Antacid) 30 Ml PO 10/27/23 10:22 30 ml ONCE ONE Administration Medical Decision Making MDM Narrative Medical decision making narrative: This patient comes in reporting upper epigastric and lower chest discomfort that radiates through the back. This pain seems to come and go but does wake him up at night. He states that it seems worse when he is laying down. An IV is established and labs are acquired. Labs returned with normal findings except his lipase level is around 700. CT scan of chest, abdomen, and pelvis with IV contrast shows no acute findings. His pancreas and gallbladder appear normal. He does have diverticulosis. There are no other abnormalities to explain the patient's pain. The patient did receive a GI cocktail because he began to have pain again when he laid down for the CT scan. The GI cocktail brought complete relief to his pain. He tells me that he has chronic back pain and has been taking lots of ibuprofen and aspirin to treat his pain. He is not using any prescription pain medicines any more but is taking lots of and states. I advised him to discontinue these as it likely is contributing to his symptoms. He received a prescription for Protonix. I advised him to follow-up with his primary physician. As for his elevated lipase is it does not appear that he is showing classic symptoms of pancreatitis however this is an elevated results. I did advise him regarding signs or symptoms that would indicate a need to return for re-evaluation. Lab Data Labs: Lab Results 10/27/23 10/27/23 Range/Units 08:35 08:37 WBC 9.65 (4.50-11.00) K/uL RBC 4.70 (4.30-5.90) m/uL Hgb 14.8 (13.5-17.5) gm/dL Hct 44.6 (37.0-53.0) % MCV 95 (80-100) fL MCH 32 (26-34) pg MCHC 33 (32-36) gm/dL RDW Coeff of [place] 13.4 (11.5-15.5) % Plt Count 360 (140-440) K/uL Neut % (Auto) 68.7 (42.0-72.0) % Lymph % (Auto) 21.3 (20-44) % [place] % (Auto) 6.6 (0.0-11.0) % Eos % (Auto) 2.7 (0.0-7.0) % Baso % (Auto) 0.6 (0.0-3.0) % Neut # (Auto) 6.62 (1.7-7.0) K/uL Lymph # (Auto) 2.06 (0.90-2.90) K/uL [place] # (Auto) 0.60 (0.00-0.90) K/UL Eos # (Auto) 0.26 (0.00-0.50) K/uL Baso # (Auto) 0.06 (0.00-0.30) K/uL Abs Immat Gran (auto) 0.01 (0.00-0.30) K/uL Imm/Tot Granulo (auto) 0.1 % Sodium 137 (135-149) mmol/L Potassium 4.4 (3.6-5.1) mmol/L Chloride 104 (96-114) mmol/L Carbon Dioxide 24 (20-32) mmol/L Anion Gap 9 (7-15) mEq/L BUN 16 (7-30) mg/dL Creatinine 1.0 (0.5-1.5) mg/dL Estimated Creat Clear 98.77 Estimated GFR 91 ml/min Glucose 112 (60-115) mg/dL Calcium 9.9 (8.4-10.6) mg/dL Total Bilirubin 0.4 (0.1-1.5) mg/dL Direct Bilirubin 0.4 (0.0-0.5) mg/dL AST 24 (12-35) U/L ALT 18 (4-50) U/L Alkaline Phosphatase 70 (40-150) U/L Total Protein 8.4 H (6.0-8.3) g/dL Albumin 4.9 (3.3-5.0) g/dL Lipase 795 H (23-300) U/L POC Troponin I 0.01 (0.01-0.04) ng/ml Imaging Data CT Chest/Ab/Pelvis: Radiologist's impression: 1. No evidence of acute aortic syndrome. 2. No acute abnormality identified in the chest, abdomen, or pelvis. 3. Scattered calcified granulomas with additional small noncalcified pulmonary nodules in the left upper and lower lobes. If this patient is at increased risk of lung cancer, consider chest CT follow-up in 12 months. 4. Hepatomegaly. 5. Colonic diverticulosis. ECG Data Attestation: I personally reviewed and interpreted this ECG as follows: Interpretation: Normal sinus rhythm, rate 70 beats per minute. Inferior leads appear to have early repolarization. Discharge Plan Discharge Clinical Impression: Esophagitis, reflux Patient Disposition: Home, Self-Care Condition: Improved Additional Instructions: Avoid aspirin and ibuprofen products. Take Protonix as prescribed. Follow up with primary physician for ongoing management. Return if symptoms are persistent or worsening. Prescriptions: New pantoprazole [Protonix] 40 mg tablet,delayed release (DR/EC) 40 mg PO DAILY Qty: 30 2RF Follow Up/Referrals: Willis Martínez MD [Primary Care Provider] - Stand Alone Forms: [email or web address] Info Instructions
[2023-10-27 08:47] LABS: Basophils Absolute Auto 0.06 K/uL (0.00-0.30); Basophils Percent Auto 0.6 % (0.0-3.0); Eosinophils Absolute Auto 0.26 K/uL (0.00-0.50); Eosinophils Percent Auto 2.7 % (0.0-7.0); Hematocrit 44.6 % (37.0-53.0); Hemoglobin* 14.8 gm/dL (13.5-17.5); Immature Granulocytes Abs Auto 0.01 K/uL (0.00-0.30); Immature Granulocytes Pct Auto 0.1 %; Lymphocytes Absolute Auto 2.06 K/uL (0.90-2.90); Lymphocytes Percent Auto 21.3 % (20-44); Mean Corpuscular HGB Conc 33 gm/dL (32-36); Mean Corpuscular Hemoglobin 32 pg (26-34); Mean Corpuscular Volume 95 fL (80-100); Monocytes Percent Auto 6.6 % (0.0-11.0); Neutrophils Absolute Auto 6.62 K/uL (1.7-7.0); Neutrophils Percent Auto 68.7 % (42.0-72.0); Platelet Count* 360 K/uL (140-440); RDW Coefficient of Variation % 13.4 % (11.5-15.5); White Blood Count* 9.65 K/uL (4.50-11.00)
[2023-10-27 08:48] LABS: Troponin, Point-of-Care* 0.01 ng/ml (0.01-0.04)
--- OUTSIDE RECORDS SUMMARY | 2023-10-27 08:57 | XMS_ITS | Clinical Summary ---
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 0 07/16/2016 Active sildenafil citrate (VIAGRA) 50 mg tabletIndications:E rectile dysfunction of organic origin Take 1 Tablet (50 mg) by mouth once daily if needed for Erectile Dysfunction. Take 30min to 4 hours before sexual activity. Max 100mg/24hr 30 Tablet 3 06/08/2022 Active ibuprofen (IBU ORAL) Take by mouth continuous as needed (back pain). Active polyethylene glycol-electrolyte (GOLYTELY) 236-22.74-6.74 -5.86 gram suspensionIndicatio ns:Encounter for screening colonoscopy Drink 2 liters the day before colonoscopy and 2 liters 6 hours before colonoscopy appointment 4000 mL 11/28/2023 Active Active Problems Problem Noted Date Diagnosed Date Small bowel obstruction 11/09/2022 S/P small bowel resection 08/16/20222022 Partial small bowel obstruction 08/16/2022 08/16/2022 Lung nodule seen on imaging study 08/16/2022 08/16/2022 Abdominal abscess 08/16/2022 08/16/2022 S/P exploratory laparotomy 02/26/2011 Chronic low back pain 03/25/2010 Narcotic contract violation - recurrent 10/03/19 10 Overview: Multiple marijuana use episodes. 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 Overview: L5, S1 Displacement of intervertebr al disc, site unspecified, without myelopathy Overview: L 4-5 bulge (W/C DOI 720613) Encounters Date Type Department Care Team Description 10/25/2023 8:00 AM CDT Ancillary Procedure [facility] [address] [place] [address] Arrived 10/25/2023 Travel 10/18/2023 8:30 AM CDT Office Visit [facility] [address] [place] [address] Marsha Henderson, Concerns (Lung follow up ) 10/18/2023 Telephone [facility] [address] [place] [address] Clifford Garza MD Pre Procedure 10/18/2023 Travel from Last 3 Months Immunizations Name Administration Dates Next Due DTaP 07/24/1976,01/09/1973 Mumps 07/24/1976 Td (Age >=7 Years) 05/26/1999 Tdap 05/08/2009 Family History Medical History Relation Name Comments [facility] Brother 2 Atrial fibrillation Father Blood Disease Father some kind of b lood problem where his bone marrow didn't make cells; son unsure if he had a diagnosis or not for this Unknown Maternal Grandfather Unknown Maternal Grandmother Other Mother Alzheimer's dis ease Unknown Paternal Grandfather Unknown Paternal Grandmother Anesthesia Problem No Family History Relation Name Status Comments Brother 1 Alive Brother 2 Father Maternal Grandfather Maternal Grandmother Mother alzheimer's dis ease, age 58 Paternal Grandfather Paternal Grandmother Social History Tobacco Use Types Packs/Day Years Used Date Smoking Tobacco: Never Passive Smoke Exposure: Never Smokeless Tobacco: Never Tobacco Cessation:Counseling Given: Yes Alcohol Use Standard Drinks/Week Comments Yes 0 (1 standard drink = 0.6 oz pur e alcohol) occasionally PHQ-2 Answer Date Recorded PHQ-2 Score 3 05/28/2018 Social Connections Answer Date Recorded Frequency of Communication with Friends and Fami ly 0 10/18/2023 Financial Resource Strain Answer Date R ecorded Difficulty of Paying Living Expenses 3 10/18/2023 Difficulty of Paying Living Expenses Not on file 10/18/2023 Food Insecurity Answer Date Recorded Worried About Running Out of Food in the Last Ye ar 1 10/18/2023 Transportation Needs Answer Date Record ed Lack of Transportation (Medical) 1 10/18/2023 Housing Stability Answer Date Recorded Unable to Pay for Housing in the Last Year 1 10/18/2023 Sex and Gender Information Value Date Recorded Sex Assigned at Not on file Gender Identity Not on file Sexual Orientation Not on file Obstetrics History Last Filed Vital Signs Vital Sign Reading Time Taken Comments Blood Pressure 122/80 10/18/2023 8:37 AM CDT Pulse 73 10/18/2023 8:37 AM CDT Temperature 36.9 ??C (98.5 ??F) 11/09/2022 9:53 AM CD T Respiratory Rate 18 11/09/2022 9:53 AM CDT Oxygen Saturation 97% 10/18/2023 8:37 AM CDT Inhaled Oxygen Concentration - - Weight 83.2 kg (183 lb 6.4 oz) 10/18/2023 8:37 A M CDT Height 185.4 cm (6' 1) 11/09/2022 9:53 AM CDT Body Mass Index 24.2 11/09/2022 9:53 AM CDT Plan of Treatment Upcoming Encounters Date Type Department Care Team (Late st Contact Info) Description 12/06/2023 8:00 AM CDT Office Visit [facility] [address] [place] [address] Clifford Garza MD [address] [place] [address] Health Maintenance Due Date Last Done Comments HIV for age 15-65 07/01/1987 Colonoscopy through age 75 2017 Depression screening for age 12+ 04/25/2019 04/25/2018, 04/03/2018, 03/31/2018, Additional history exists Tetanus booster 05/08/2019 05/08/2009, 05/26/1999 Zoster (shingles) series for age 50+ (1 of 2) 2022 COVID-19 vaccine series ( season) 2022 BMI (ht and wt on same day) for age 18+ 11/10/2023 11/09/2022, 05/17/2018, 04/25/2018, Additional history exists Influenza for age 50-64 11/27/2023 Lipids for age 45-75 10/08/2026 10/08/2021, 03/31/19 07 Tdap Completed 05/08/2009 Hepatitis C screening for age 18-79 Completed 10/08/2021 Pneumococcal series for age 6-64 Aged Out No longer eligible based on patient's age to complete this topic Procedures Procedure Name Priority Date/Time Associated Diagnosis Comments CT CHEST WO Routine 10/25/2023 8:19 AM CDT Lung nodule ANTI HCV Routine 10/08/2021 3:30 PM CDT Fatigue, unspecified type LIPID PANEL W REFLEX MEASURED LDL Routine 10/08/2021 3:30 PM CDT Screening for lipid disorders from Last 3 Months or Most Recently Relevant to Health Maintenance Results * CT CHEST WO (10/25/2023 8:19 AM CDT) Anatomical Region Laterality Modality CHEST, THORAX, HEART Computed To mography 10/25/2023 4:01 PM CDT Narrative 10/25/2023 4:01 PM CDT For Patients: ??As a result of the Cures Act, medical imaging exams and procedure reports are released immediately into your electronic medical record. ??You may view this report before your referring provider. ??If you have questions, please contact your health care provider. Indication: Lung nodule Technique: Noncontrast CT chest Please note that all CT scans at this facility use dose modulation, iterative reconstruction, and/or weight-based dosing when appropriate to reduce radiation dose to as low as reasonably achievable. Comparison: CT abdomen 08/02/2022 Findings: Visualized thyroid is normal. Partially calcified mediastinal and right hilar lymph nodes are present representing sequela of granulomatous change. Additional calcified paraesophageal lymph node is present. Visualized upper abdomen is unremarkable. No pleural or pericardial effusion. Calcified granuloma within the right upper lobe noted. Additional calcified nodule right lower lobe and 2 calcified nodules in the right perihilar lung laterally. Additional calcified nodule within the left upper lobe. Chronic wedging at the lower thoracic spine considered physiologic. Stable noncalcified nodule within the left lower lobe measures 4.3 millimeters, series 10, image 106. Impression: Bilateral pulmonary nodules, most of which are calcified. Noncalcified nodule left lower lobe measures 4 millimeters. Please note that all CT scans at this facility use dose modulation, iterative reconstruction, and/or weight-based dosing when appropriate to reduce radiation dose to as low as reasonably achievable. Dictated by Steve Valle MD @ 10/25/2023 4:01:43 PM (Electronically Signed) Procedure Note Steve Valle MD - 10/25/2023 For Patients: As a result of the Century Cures Act, medical imagingexams and procedure reports are released immediately into your electronicmedical record. You may view this report before your referring provider.If you have questions, please contact your health care provider. Indication: Lung nodule Technique: Noncontrast CT chest Please note that all CT scans at this facility use dose modulation,iterative reconstruction, and/or weight-based dosing when appropriate toreduce radiation dose to as low as reasonably achievable. Comparison: CT abdomen 08/02/2022 Findings: Visualized thyroid is normal. Partially calcified mediastinal and righthilar lymph nodes are present representing sequela of granulomatouschange. Additional calcified paraesophageal lymph node is present.Visualized upper abdomen is unremarkable. No pleural or pericardialeffusion. Calcified granuloma within the right upper lobe noted.Additional calcified nodule right lower lobe and 2 calcified nodules inthe right perihilar lung laterally. Additional calcified nodule within theleft upper lobe. Chronic wedging at the lower thoracic spine consideredphysiologic. Stable noncalcified nodule within the left lower lobemeasures 4.3 millimeters, series 10, image 106. Impression: Bilateral pulmonary nodules, most of which are calcified. Noncalcifiednodule left lower lobe measures 4 millimeters. Please note that all CT scans at this facility use dose modulation,iterative reconstruction, and/or weight-based dosing when appropriate toreduce radiation dose to as low as reasonably achievable. Dictated by Steve Valle MD @ 10/25/2023 4:01:43 PM (Electronically Signed) Adei Joseloqra DO CT * (ABNORMAL) LIPID PANEL W REFLEX MEASURED LDL (10/08/2021 3:30 PM CDT) CHOLESTEROL,TOTAL 179 100 - 199 mg/dL 10/09/2021 11:42 PM CDT [facility] TRIGLYCERIDES 392(H) <150 mg/dL 10/09/2021 11:42 PM CDT [facility] HDL CHOLESTEROL 38(L) >40 mg/dL 11:42 PM CDT [facility] NON-HDL CHOLESTEROL 141 <145 mg/dl 10/09/2021 11:42 PM CDT [facility] CHOL/HDL RATIO 4.71(H) <4.50 10/09/2021 11:42 PM CDT [facility] LDL CHOLESTEROL 63 <=130 mg/dL 10/09/2021 11:42 PM CDT [facility] VLDL CHOLESTEROL 78(H) <=30 mg/dL 10/09/2021 11:42 PM CDT [facility] PROVIDER ORDERED STATUS RANDOM 10/09/2021 11:42 PM CDT [facility] Blood BLOOD SPECIMEN / Unknown Venipuncture / Unknown 10/08/2021 3:30 PM CDT 10/08/2021 3:35 PM CDT Adrianna SMART CHEMISTRY [facility] [address] [place] [address], * ANTI HCV (10/08/2021 3:30 PM CDT) HEPATITIS C ANTIBODY Non-React billie Non-React billie 10/09/2021 7:03 PM CDT [facility] Comment:Antibodies to HCV no t detected; does not exclude the possibility of exposure to HCV. Blood BLOOD SPECIMEN / Unknown Venipuncture / Unknown 10/08/2021 3:30 PM CDT 10/08/2021 3:35 PM CDT Adrianna SMART [facility]END [facility] 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 PCP - General 10/11/23
--- OUTSIDE RECORDS SUMMARY | 2023-10-27 08:57 | XMS_ITS | Continuity of Care Document ---
Author Organization [facility] Address [address] [place] [address] [address] [place] [address] Phone Care Team Providers Care Rehabilitation Therapy Aide Name Role Phone Allison Bhatti MD Unavailable Unavailable Procedures Procedure Date Office[place]patient [place] [place] Advance Directives Directive Yes / No Effective Date File Name No Information Encounters Encounter Description Practice Location Reason(s) For Visit Diagnoses Date Provider Providers Copied on Encounter Office/outpat ient visit,[facility], [facility], [address] [place], [place] [address], [address], [place] tel:[phone] [facility] No Information Davy Cooper. [facility], [address], [place], [place], [id number] , [place]. tel:[phone] Referring Provider: Frederic Arenas, [address], [address]. tel:[phone] Family History Family Member Type Diagnosis Age At Onset No Information Payers Payer name Insurance type Covered democrat ID Authoriza tion(s) [employer] CI [id number] [facility] CI [id number] Social History Type Description Quantity Date Captured Comments Sex Male Smoking Status No Information Chief Complaint And Reason For Visit No Information Reason For Referral Reason For Referral No Information History Of Present Illness Encounter Date Complaint History Of Prese nt Illness No Information Functional Status Date Functional Assessmen t No Information Instructions Date Instruction Additional Infor mation No Information Assessments Type Assessment Date No Information Patient Care Teams Name Effective Dates (start - stop) Status Members No Information
[2023-10-27 09:05] LABS: Albumin* 4.9 g/dL (3.3-5.0); Slide Review Reflex No
[2023-10-27 09:06] LABS: Chloride* 104 mmol/L (96-114); Potassium* 4.4 mmol/L (3.6-5.1); Sodium* 137 mmol/L (135-149)
[2023-10-27 09:08] LABS: Alkaline Phosphatase* 70 U/L (40-150); Aspartate Amino Transferase* 24 U/L (12-35); Bilirubin Direct* 0.4 mg/dL (0.0-0.5); Bilirubin Total* 0.4 mg/dL (0.1-1.5); Lipase* 795 U/L (23-300); Total Protein* 8.4 g/dL (6.0-8.3)
[2023-10-27 09:09] LABS: Alanine Aminotransferase* 18 U/L (4-50); Anion Gap 9 mEq/L (7-15); Carbon Dioxide* 24 mmol/L (20-32); Est. Creatinine Clearance* 98.77; Estimated Glomerular Filt Rate 91 ml/min
[2023-10-27 09:10] LABS: Blood Urea Nitrogen* 16 mg/dL (7-30); Calcium* 9.9 mg/dL (8.4-10.6); Glucose* 112 mg/dL (60-115)
[2023-10-27] MEDS: GI COCKTAIL (VISC LIDO/ANTACID) 30 ML PO (10:35)
== END 2023-10-27 11:19 | disposition home or self-care (01) ==
PROVIDERS: Emergency Provider Emergency Medicine Emergency Medical Services; PCP Surgery
DX: K21.00 Gastro-esophageal reflux disease with esophagitis, without bleeding (principal)
CPT/HCPCS: 36415; 71275; 74174; 80048; 80076; 83690; 84484; 85025; 93005; 94761; 99284; 99285; A9270; Q9967